=== PATIENT | female | born 1955 | race Caucasian/White ===

== ENCOUNTER 2020-01-08 09:16 | Outpatient (REF) | payer OTHER, SELFPAY | END 2020-01-08 09:17 | disposition home or self-care (01) | LOC: HO.LAB 09:16 | PROVIDERS: Visit Provider Internal Medicine | DX: Z20.828 Contact with and (suspected) exposure to other viral communicable diseases (principal) | CPT/HCPCS: C9803; U0003 ==

== ENCOUNTER 2021-09-05 06:09 | Outpatient (REF) | payer OTHER, SELFPAY ==
[2021-09-05 11:25] LABS: MANUAL DIFF FLAG NO
[2021-09-05 11:35] LABS: Basophils Percent Auto 0.6 % (0-2); Eosinophils Absolute Auto 0.1 X10*3/uL (0.0-0.4); Eosinophils Percent Auto 1.5 % (0-4); Hematocrit 39.6 % (37.0-47.0); Hemoglobin 12.6 g/dl (12.0-16.0); Imm Gran Abs Auto 0.01 X10*3/uL (0.00-0.03); Imm Gran Pct Auto 0.1 % (0.0-0.4); Lymphocytes Absolute Auto 2.7 X10*3/uL (1.2-4.9); Mean Corpuscular HGB Conc 31.8 g/dl (31.0-35.0); Mean Corpuscular Hemoglobin 27.8 pg (27.0-33.0); Mean Corpuscular Volume 87.4 fL (80.0-98.0); Mean Platelet Volume 11.2 fL (9.4-12.3); Monocytes Absolute Auto 0.6 X10*3/uL (0.1-1.2); Monocytes Percent Auto 9.4 % (2-11); Neutrophils Absolute Auto 3.3 x10*3/uL (2.0-8.3); Neutrophils Percent Auto 48.4 % (45-73); Platelet Count 260 X10*3/uL (160-400); Red Blood Count 4.53 X10*6/uL (4.20-5.50); Red Cell Distribution Width 14.1 % (11.0-16.0); White Blood Count 6.8 X10*3/uL (4.8-10.8)
[2021-09-05 11:58] LABS: Alanine Aminotransferase 21 U/L (0-31); Albumin Level 4.4 g/dL (3.5-5.0); Alkaline Phosphatase 67 U/L (39-117); Anion Gap 11 (12-20); Aspartate Amino Transferase 24 U/L (5-31); Bilirubin Total 0.3 mg/dL (0.0-1.0); Blood Urea Nitrogen 30 mg/dL (9-16); Calcium 9.2 mg/dL (8.4-10.2); Carbon Dioxide 24 mmol/L (22-29); Chloride 109 mmol/L (96-108); Cholesterol 202 mg/dL; Estimated Glomerular Filt Rate > 60; Glucose Fasting 107 mg/dL (60-99); HDL Cholesterol 61 mg/dL; LDL Cholesterol Calculated 112 mg/dl; Potassium 4.3 mmol/L (3.3-5.1); Sodium 140 mmol/L (135-145); Triglycerides 148 mg/dL
== END 2021-09-05 06:10 | disposition home or self-care (01) ==
LOC: HO.HMGCLDS 06:09
PROVIDERS: Visit Provider Internal Medicine
DX: I10 Essential (primary) hypertension (principal); R05.8 Other specified cough; R63.5 Abnormal weight gain
CPT/HCPCS: 36415; 80053; 80061; 84443; 85025

== ENCOUNTER 2022-08-30 07:50 | Outpatient (REF) | payer MEDICARE, OTHER, SELFPAY | END 2022-08-30 07:51 | disposition home or self-care (01) | LOC: HO.HMGCLDS 07:50 | PROVIDERS: PCP Internal Medicine; Visit Provider Internal Medicine | DX: Z00.01 Encounter for general adult medical examination with abnormal findings (principal); R73.01 Impaired fasting glucose; I10 Essential (primary) hypertension | CPT/HCPCS: 36415; 80053; 80061; 83036; 85025 ==

== ENCOUNTER → 2022-10-10 08:23 | Outpatient (BNVA) | payer MEDICARE, OTHER, SELFPAY | PROVIDERS: PCP Internal Medicine; Visit Provider Nurse Practitioner Family ==

== ENCOUNTER 2022-10-23 07:24 | Outpatient (REF) | payer MEDICARE, OTHER, SELFPAY ==
--- NOTE | ~2022-10-23 | MM_ITS ---
EXAMINATION: MM SCREENING DIGITAL BREAST TOMOSYNTHESIS, BILATERAL CLINICAL INFORMATION: Screening. Asymptomatic. COMPARISON: Mammography: 08/12/2018, 06/07/2016, 03/16/2015, 03/20/2013, and dating back to 2010. TECHNIQUE: Digital breast tomosynthesis is performed in both the craniocaudal and mediolateral oblique views along with computer-aided detection (CAD). Synthesized 2D images are generated from the tomosynthesis. FINDINGS: There are scattered areas of fibroglandular density (ACR BI-RADS breast composition Category b). There are benign secretory calcifications in both breasts. There are no suspicious calcifications. There is bilateral retroareolar duct ectasia. In the left breast upper outer quadrant, middle one third, there is a focal asymmetry which appears more prominent than previously, and 3-D spot compression views utilizing small paddle recommended in the CC, and MLO projections, as well as a full-field left 3-D mediolateral view. MM/MM tomosynthesis screening BI IMPRESSION: Left breast upper outer quadrant, middle one third, developing focal asymmetry for which diagnostic views are recommended as discussed above. Ultrasound should be scheduled as per discretion of the interpreting radiologist. ASSESSMENT: BI-RADS BI-RADS 0 - Incomplete: Needs additional Imaging. RECOMMENDATION: 1. Additional views of the left breast 2. Targeted ultrasound if warranted after review of the additional views. 3. Radiology department staff will contact the patient for additional imaging. Additional Imaging required This examination should not preclude the clinical evaluation of a suspicious palpable abnormality.
== END 2022-10-23 07:25 | disposition home or self-care (01) ==
LOC: HO.MAMMO 07:24
PROVIDERS: PCP Internal Medicine; Visit Provider Internal Medicine
DX: Z12.31 Encounter for screening mammogram for malignant neoplasm of breast (principal)
CPT/HCPCS: 77063; 77067

== ENCOUNTER → 2022-10-23 07:30 | Outpatient (BNV) | payer MEDICARE, OTHER, SELFPAY | PROVIDERS: PCP Internal Medicine; Visit Provider Radiology Diagnostic Radiology | DX: Z12.31 Encounter for screening mammogram for malignant neoplasm of breast (principal) | CPT/HCPCS: 77063; 77067 ==

== ENCOUNTER → 2022-11-09 08:00 | Outpatient (BNV) | payer MEDICARE, OTHER, SELFPAY | PROVIDERS: Visit Provider Radiology Diagnostic Radiology | DX: R92.8 Other abnormal and inconclusive findings on diagnostic imaging of breast (principal) | CPT/HCPCS: 76642; 77061; 77065; G0279 ==

== ENCOUNTER 2022-11-09 08:04 | Outpatient (REF) | payer MEDICARE, OTHER, SELFPAY ==
--- NOTE | ~2022-11-09 | MM_ITS ---
EXAMINATION: MM DIAGNOSTIC DIGITAL BREAST TOMOSYNTHESIS, LEFT US BREAST LIMITED, LEFT MAMMOGRAPHY: CLINICAL INFORMATION: Follow-up focal asymmetric density left breast upper outer quadrant, seen on screening exam. COMPARISON: Mammography: Screening mammography 10/23/2022 and numerous priors. TECHNIQUE: Digital left breast tomosynthesis is performed utilizing full-field left 3-D digital mediolateral view, as well as a left 3-D spot compression MLO and cc views x2, along with computer-aided detection (CAD). Synthesized 2D images are generated from the tomosynthesis. FINDINGS: There are scattered areas of fibroglandular density (ACR BI-RADS breast composition Category b). Spot compression views and left ML view demonstrate dissipation of the previously seen focal asymmetric density, which does not persist, and is consistent with superimposition artifact of normal overlapping breast tissues. There is no persistent suspicious finding present. Ultrasound will be performed in the interest of caution. ULTRASOUND: CLINICAL INFORMATION: Follow-up focal asymmetric density left breast upper outer quadrant, seen on screening exam. COMPARISON: No relevant prior. Mammography 10/23/2022 TECHNIQUE: Targeted sonographic evaluation was performed left breast upper outer quadrant using a high frequency linear transducer. Selected archived documentation. FINDINGS: LEFT BREAST: There is a mixture of fatty and fibroglandular tissue. No suspicious mass is seen. There is no pathologic acoustic shadowing. There is no cystic abnormality. No ultrasonographic correlate to the asymmetric density seen on the left mammogram, which dissipated on spot compression views. MM/MM tomosynthesis added views L IMPRESSION: There are no persistent findings suspicious for malignancy in the left breast. No ultrasonographic or mammographic evidence of persistent abnormality in the left breast. Recommend the patient resume routine annual screening. OVERALL ASSESSMENT: Mammography: BI-RADS 1 - Negative Ultrasound: BI-RADS 1 - Negative RECOMMENDATION: 1 year F/U Results were provided to the patient at time of visit by the technologist. This patient's information was entered into a reminder system with a target due date for their next mammogram.
== END 2022-11-09 08:05 | disposition home or self-care (01) ==
LOC: HO.MAMMO 08:04
PROVIDERS: Visit Provider Internal Medicine
DX: N64.89 Other specified disorders of breast (principal)
CPT/HCPCS: 76642; 77061; 77065

== ENCOUNTER 2022-11-14 09:09 | Outpatient (AMB) | payer MEDICARE, OTHER, SELFPAY ==
--- NOTE | 2022-11-14 09:13 | MHC.PC.OV ---
Vital Signs 11/14/22 09:14 Height 5 ft 5.5 in Weight 178 lb BMI 29.2 BP 132/68 Blood Pressure Location Rt brachial Position Sitting Pulse 64 Pulse Source Pulse Oximeter Pulse Oximetry (%) 97 Oxygen Delivery Method Room Air Intake Visit Reasons: 3 month follow up Allergies hydrochlorothiazide [HYDROCHLOROTHIAZIDE] Allergy (Unknown, Verified 11/14/22 09:14) SWELLING, rash sulfacetamide Allergy (Unknown, Verified 11/14/22 09:14) unknown bee sting Allergy (Unknown, Uncoded 10/10/22 09:02) anaphylaxis Medication List - Last Reconciled 11/14/22 by Rigoberto Agudelo MD acetaminophen ER 650 mg PO Q8H PRN bisacodyl (Dulcolax (bisacodyl)) 10 mg (2 x 5 mg) PO ONCE 1 day cetirizine (Zyrtec) 10 mg PO DAILY epinephrine 0.3 mg (0.3 mL) IM Q10M PRN 30 days lisinopril 5 mg PO DAILY 90 days magnesium 400 mg PO BEDTIME PRN polyethylene glycol 3350 (Miralax) 238 grams PO ONCE Tobacco use date assessed: 11/14/22 Fall risk assessment: No Falls in past year Last assessed Fall Risk: 11/14/22 Dental Screening Dental Screen Date: 11/14/22 Did you have a dental visit in the last 12 months?: Yes Did you have a dental problem in the last 6 months where you did not have access to dental care?: No Was dental information given to patient?: Patient has dentist HPI 3 month follow up HPI Details Patient is a 67-year-old female came in today for her regular follow-up appointment Blood pressure is 132/68 patient is taking lisinopril 5 mg, tolerating medication no side effects. Patient is due for labs she had labs done in August she will be having next set of lab in January, and will return in March for follow-up. Constipation is stable patient is taking Dulcolax and MiraLax as needed. Allergies are stable patient is taking Zyrtec only as needed. She offer no new complaints today. BMI is 29.2 patient need to lose weight she is trying. PFSH Medical History COVID-19 virus infection Surgical History History of colonoscopy History of hysteroscopy History of arthroscopy of right knee H/O prior ablation treatment History of facial surgery Family History Father Heart disease Aneurysm ETOH abuse Mother Lung cancer Sister COPD (chronic obstructive pulmonary disease) Son Asthma Maternal Grandmother Cirrhosis Maternal Grandfather Heart disease Paternal Grandfather No problems noted. Paternal Grandmother No problems noted. Brother No problems noted. Brother No problems noted. Sister No problems noted. Sister No problems noted. Sister No problems noted. Son No problems noted. Daughter No problems noted. Social History Housing: House Patient Tobacco Use Status: Never used Tobacco e-Cigarette/Vaping Use: Never Used service: No Current occupational status: retired Cognitive needs: No Hearing needs: No Vision needs: Yes Questionnaire PHQ-9 Over the last 2 weeks, how often have you been bothered by any of the following problems? 1. Little interest or pleasure in doing things: not at all 2. Feeling down, depressed, or hopeless: not at all 3. Trouble falling or staying asleep, or sleeping too much: not at all 4. Feeling tired or having little energy: not at all 5. Poor appetite or overeating: not at all 6. Feeling bad about yourself - or that you are a failure or have let yourself or your family down: not at all 7. Trouble concentrating on things, such as reading the newspaper or watching television: not at all 8. Moving or speaking so slowly that other people could have noticed. Or the opposite - being so fidgety or restless that you have been moving around a lot more than usual: not at all 9. Thoughts that you would be better off or of hurting yourself in some way: not at all Total score: 0 Depression Screening Interpretation: Negative 19395 - PHQ-9 Billing: Yes Source: Developed by Drs. Terrence Dickey, Natalie Mckee, Porfirio Marrufo and colleagues, with an educational lg from [employer]. Thrive Questionnaire Date Thrive assessed: 11/14/22 I am a: Patient What is your living situation today?: I have a steady place to live Within the past 12 months, did the food you bought not last and you didn't have the money to get more?: Never true Within the past 12 months, did you worry whether your food would run out before you got money to buy more?: Never true Do you have trouble paying for medicines?: No Do you have trouble getting transportation to medical appointments?: No Do you have trouble paying your heating and electricity bill?: No Do you have trouble taking care of your child, family member or friend?: No Do you have trouble with day-to-day activities such as bathing, preparing meals, shopping, managing finances, etc.?: No Are you currently unemployed and looking for a job?: No Are you interested in more education?: Yes AUDIT C Alcohol Use Questionnaire (AUDIT-C) 1. How often do you have a drink containing alcohol?: Monthly or less 2. How many drinks containing alcohol do you have on a typical day when you are drinking?: 1 or 2 3. How often do you have six or more drinks on one occasion?: Never Total Score: 1 Score Reviewed/Action Taken: Yes TROY-7 AMB Questionnaire TROY-7 Date TROY - 7 assessed: 11/14/22 Feeling nervous, anxious, or on edge: 1 = Several days Not being able to stop or control worryin = Several days Worrying too much about different things: 1 = Several days Trouble relaxin = Not at all Being so restless that it is hard to sit still: 0 = Not at all Becoming easily annoyed or irritable: 0 = Not at all Feeling afraid as if something awful might happen: 0 = Not at all Total TROY-7 score (0-4 normal; 5-9 mild; 10-14 moderate; 15-21 severe): 3 Source: Developed by Drs. Terrence Dickey, Natalie Mckee, Porfirio Marrufo and colleagues, with an educational lg from [employer]. TROY-7 Assessment Billing TROY-7 Assessment Tool: TROY-7 Assessment 74209 Review of Systems Const Denies chills and Denies fever(s) ENT Denies epistaxis and Denies nasal discharge Card Denies chest pain Resp Denies chest congestion, Denies cough and Denies hemoptysis GI Denies diarrhea and Denies nausea Skin/Breast Denies rash Neuro Reports no additional complaints Psych Reports no additional complaints Endo Reports no additional complaints Physical exam (Primary Care) Vital Signs: Last Vital Signs Pulse 64 11/14/22 09:14 BP 132/68 11/14/22 09:14 Pulse Ox 97 11/14/22 09:14 Oxygen Delivery Method Room Air 11/14/22 09:14 BMI result Body Mass Index 29.2 Tobacco/Smoking Status: Tobacco use Status Tobacco use date assessed 11/14/22 11/14/22 09:14 Patient Tobacco Use Status Never used Tobacco 11/14/22 09:14 e-Cigarette/Vaping Use Never Used 11/14/22 09:14 PHQ-9: PHQ-9 Score PHQ-9: Total score 0 11/14/22 10:05 Depression Screening Interpretation: Negative Thrive Assessment: Date of Thrive Assessment Date Thrive assessed 11/14/22 11/14/22 10:05 Const General: cooperative, comfortable and no acute distress Orientation/consciousness: patient oriented x3 HENMT Head: Yes normocephalic Eyes General: appearance normal, both eyes and all related structures Neck Neck: Yes supple Resp Effort & Inspection: normal respiratory effort, no cough and no stridor Cardio Rhythm: regular rhythm Heart sounds: S1 normal heart sound present and S2 normal heart sound present Skin General skin exam: turgor normal Neuro General: patient oriented x3, tone normal and moves all extremities Extrem Right lower extremity: no edema Left lower extremity: no edema Assessment and Plan Assessment & Plan (1) Hypertension, essential: Code(s): I10 - Essential (primary) hypertension (2) Environmental allergies: Code(s): Z91.09 - Other allergy status, other than to drugs and biological substances (3) Impaired fasting blood sugar: Code(s): R73.01 - Impaired fasting glucose (4) Overweight (BMI 25.0-29.9): Code(s): E66.3 - Overweight Plan Patient is a 67-year-old female came in today for her regular follow-up appointment Blood pressure is 132/68 patient is taking lisinopril 5 mg, tolerating medication no side effects. Patient is due for labs she had labs done in August she will be having next set of lab in January, and will return in March for follow-up. Constipation is stable patient is taking Dulcolax and MiraLax as needed. Allergies are stable patient is taking Zyrtec only as needed. She offer no new complaints today. BMI is 29.2 patient need to lose weight she is trying. Patient has impaired fasting sugar, we are monitoring it. Orders: Orders Vitamin D 25-OH (D2 and D3) Today I10 - Essential (primary) hypertension, R63.5 - Abnormal weight gain, R73.01 - Impaired fasting glucose, Z91.09 - Other allergy status, other than to drugs and biological substances Vitamin B12 Today I10 - Essential (primary) hypertension, R63.5 - Abnormal weight gain, R73.01 - Impaired fasting glucose, Z91.09 - Other allergy status, other than to drugs and biological substances TSH reflex Free T4 Today I10 - Essential (primary) hypertension, R63.5 - Abnormal weight gain, R73.01 - Impaired fasting glucose, Z91.09 - Other allergy status, other than to drugs and biological substances Complete Blood Count Auto Diff Today I10 - Essential (primary) hypertension, R63.5 - Abnormal weight gain, R73.01 - Impaired fasting glucose, Z91.09 - Other allergy status, other than to drugs and biological substances Comprehensive [place]. Panel Fast Today I10 - Essential (primary) hypertension, R63.5 - Abnormal weight gain, R73.01 - Impaired fasting glucose, Z91.09 - Other allergy status, other than to drugs and biological substances Lipid Panel Today I10 - Essential (primary) hypertension, R63.5 - Abnormal weight gain, R73.01 - Impaired fasting glucose, Z91.09 - Other allergy status, other than to drugs and biological substances Coding Level of Care Code Est Pt Level 4 (69460) Diagnoses Hypertension, essential I10 Environmental allergies Z91.09 Impaired fasting blood sugar R73.01 Overweight (BMI 25.0-29.9) E66.3 Additional Codes TROY-7 Assessment Billing - TROY-7 Assessment Tool: TROY-7 Assessment 88444 ([id number])
[2022-11-14 09:14] VITALS: BP 132/68; PULSE 64; O2SAT 97; BMI 29.2
== END 2022-11-14 09:45 | disposition home or self-care (01) ==
PROVIDERS: PCP Internal Medicine; Visit Provider Internal Medicine
DX: I10 Essential (primary) hypertension (principal); Z91.09 Other allergy status, other than to drugs and biological substances; R73.01 Impaired fasting glucose; E66.3 Overweight
CPT/HCPCS: 99214

== ENCOUNTER 2023-03-22 07:12 | Outpatient (REF) | payer MEDICARE, OTHER, SELFPAY ==
[2023-03-22 11:42] LABS: MANUAL DIFF FLAG NO
[2023-03-22 12:01] LABS: Basophils Percent Auto 0.3 % (0-2); Eosinophils Absolute Auto 0.1 X10*3/uL (0.0-0.4); Eosinophils Percent Auto 0.9 % (0-4); Hematocrit 44.1 % (37.0-47.0); Hemoglobin 13.8 g/dl (12.0-16.0); Imm Gran Abs Auto 0.01 X10*3/uL (0.00-0.03); Imm Gran Pct Auto 0.2 % (0.0-0.4); Lymphocytes Absolute Auto 2.2 X10*3/uL (1.2-4.9); Lymphocytes Percent Auto 37.8 % (20-40); Mean Corpuscular HGB Conc 31.3 g/dl (31.0-35.0); Mean Corpuscular Hemoglobin 27.2 pg (27.0-33.0); Mean Corpuscular Volume 86.8 fL (80.0-98.0); Mean Platelet Volume 10.9 fL (9.4-12.3); Monocytes Absolute Auto 0.4 X10*3/uL (0.1-1.2); Neutrophils Absolute Auto 3.1 x10*3/uL (2.0-8.3); Neutrophils Percent Auto 53.8 % (45-73); Platelet Count 293 X10*3/uL (160-400); Red Blood Count 5.08 X10*6/uL (4.20-5.50); Red Cell Distribution Width 13.2 % (11.0-16.0); White Blood Count 5.8 X10*3/uL (4.8-10.8)
[2023-03-22 12:32] LABS: Vitamin B12 332 pg/mL (200-900)
[2023-03-22 12:37] LABS: Alanine Aminotransferase 21 U/L (0-31); Albumin Level 4.4 g/dL (3.5-5.0); Alkaline Phosphatase 67 U/L (39-117); Anion Gap 13 (12-20); Aspartate Amino Transferase 24 U/L (5-31); Bilirubin Total 0.4 mg/dL (0.0-1.0); Blood Urea Nitrogen 16 mg/dL (9-16); Calcium 9.7 mg/dL (8.4-10.2); Carbon Dioxide 25 mmol/L (22-29); Chloride 105 mmol/L (96-108); Cholesterol 236 mg/dL (<200); Estimated Glomerular Filt Rate > 60; Glucose Fasting 95 mg/dL (60-99); HDL Cholesterol 72 mg/dL (>40); LDL Cholesterol Calculated 145 mg/dL (<100); Potassium 4.3 mmol/L (3.3-5.1); Sodium 139 mmol/L (135-145); Total Protein 7.3 g/dL (6.5-8.0); Triglycerides 95 mg/dL (<150)
[2023-03-22 12:41] LABS: TSH reflex Free T4 2.28 uIU/mL (0.32-4.0)
[2023-03-26 14:30] LABS: Vitamin D 25-OH, D2 <4 ng/mL; Vitamin D 25-OH, D3 33 ng/mL; Vitamin D 25-OH, Total 33 ng/mL (30-100)
== END 2023-03-22 07:13 | disposition home or self-care (01) ==
LOC: HO.HMGCLDS 07:12
PROVIDERS: PCP Internal Medicine; Visit Provider Internal Medicine
DX: I10 Essential (primary) hypertension (principal); R73.01 Impaired fasting glucose; R63.5 Abnormal weight gain; Z91.09 Other allergy status, other than to drugs and biological substances
CPT/HCPCS: 36415; 80053; 80061; 82306; 82607; 84443; 85025

== ENCOUNTER 2023-04-03 11:50 | Outpatient (AMB) | payer MEDICARE, OTHER, SELFPAY ==
--- NOTE | 2023-04-03 11:56 | A.OFFVIS_ITS ---
Intake Vital Signs 04/03/23 11:57 Height 5 ft 5.5 in Weight 178 lb BMI 29.2 BP 157/70 H Blood Pressure Location Lt brachial Position Sitting Pulse 65 Intake Visit Reasons: s/p egd/colon Intake Note: Patient follow up for lab results. Patient cc: abdominal bloating, and acid reflex. Patient procedures are on 04/19. Molding Technician Required: No Accompanied by: Self / Same As Patient Allergies hydrochlorothiazide [HYDROCHLOROTHIAZIDE] Allergy (Unknown, Verified 04/03/23 11:55) SWELLING, rash sulfacetamide Allergy (Unknown, Verified 04/03/23 11:55) unknown bee sting Allergy (Unknown, Uncoded 10/10/22 09:02) anaphylaxis HPI s/p egd/colon HPI Details LAST VISIT: Colon cancer screening Patient denies any GI, cardiac or respiratory symptoms.? Denies any issues with anesthesia in the past.? Denies any history of sleep apnea.? No history infectious diseases in the past or present.? Not on any anticoagulation therapy.? No family or personal history of colon cancer or polyps.? Patient denies melena, hematochezia, unintentional weight loss or ribbon like stools.? Discussed at length the pre-procedure,? prep, diet & medications as well as what to expect prior, during and after the procedure.?? Stressed the importance of good bowel prep. ?Recommended the use of Vaseline or Calmoseptine OTC & baby wipes with bowel movements to promote comfort.? ?Patient verbalizes understanding and agrees to plan of care.? She was given the opportunity to ask questions and all questions answered.? We will see her after the procedure.? TODAY'S VISIT Patient is here today for follow-up and to go over prep. Patient does have appointment scheduled for procedure. Reports that she is moving her bowels better now. Patient reports that she is trying to change her diet, eating healthier. Patient denies any dyspepsia, dysphagia or odynophagia. Patient denies any melena, hematochezia, unintentional weight loss or ribbon like stools. Patient denies any cardiac or respiratory symptoms. [facility] Medical History COVID-19 virus infection Surgical History History of colonoscopy History of hysteroscopy History of arthroscopy of right knee H/O prior ablation treatment History of facial surgery Family History Father Heart disease Aneurysm ETOH abuse Mother Lung cancer Sister COPD (chronic obstructive pulmonary disease) Son Asthma Maternal Grandmother Cirrhosis Maternal Grandfather Heart disease Paternal Grandfather No problems noted. Paternal Grandmother No problems noted. Brother No problems noted. Brother No problems noted. Sister No problems noted. Sister No problems noted. Sister No problems noted. Son No problems noted. Daughter No problems noted. Social History Housing: House Patient Tobacco Use Status: Never used Tobacco e-Cigarette/Vaping Use: Never Used service: No Current occupational status: retired Cognitive needs: No Hearing needs: No Vision needs: Yes Review of Systems Const Denies weight gain and Denies weight loss ENT Reports no additional complaints, Denies dysphagia and Denies odynophagia Card Reports no additional complaints Resp Reports no additional complaints GI Denies abdominal pain, Denies belching, Denies melena, Denies bloating, Denies change in bowel habits, Denies dysphagia, Denies excessive flatus, Denies dyspepsia, Denies heartburn, Denies diarrhea, Denies loose stools, Denies nausea, Denies odynophagia and Denies vomiting Musc Reports no additional complaints Neuro Reports no additional complaints Psych Reports no additional complaints Endo Reports no additional complaints Physical Exam Vital Signs: Last Vital Signs Pulse 65 04/03/23 11:57 BP 157/70 H 04/03/23 11:57 BMI result Body Mass Index 29.2 Const General: healthy appearing, no acute distress and well developed Nutritional Appearance: well nourished Orientation/consciousness: patient oriented x3 Resp Effort & Inspection: normal respiratory effort, able to speak in complete sentences, no tracheal deviation and symmetric chest movement Auscultation: clear to auscultation bilaterally Cardio Rate: regular rate GI Inspection: Yes normal to inspection and No distended Palpation (GI): Soft to palpation, not firm, nontender and No hepatosplenomegaly present Auscultation: normal bowel sounds General: Yes no CVA tenderness Back/Spine/Pelvis Back: no CVA tenderness Skin General skin exam: elasticity normal, turgor normal and dry skin Neuro General: patient oriented x3 Psych Appearance: grossly normal Mental Status: mental status grossly normal Assessment & Plan Assessment & Plan (1) Colon cancer screening: Code(s): Z12.11 - Encounter for screening for malignant neoplasm of colon (2) Constipation: Code(s): K59.00 - Constipation, unspecified Qualifiers: Constipation type: slow transit constipation Qualified Code(s): K59.01 - Slow transit constipation Plan Continue current regimen. Increase fluid intake and activity to promote better bowel motility. What to expect before during and after the procedure discussed with patient. Clear liquid diet and good bowel prep stressed with patient. Patient denies any cardiac or respiratory symptoms. I will see patient after the procedure, sooner on as needed basis. Patient is agreeable to current plan and verbalizes understanding of instructions. She was given the opportunity to ask questions and all questions answered. Thank you for allowing me to participate in her care Coding Level of Care Code Est Pt Level 3 (31795) Diagnoses Colon cancer screening Z12.11 Slow transit constipation K59.01 Constipation type: slow transit constipation Time Spent (min) 25 Comment 15 minutes spent with patient and additional 10 minutes spent reviewing her records
[2023-04-03 11:57] VITALS: BP 157/70; PULSE 65; BMI 29.2
== END 2023-04-03 12:35 | disposition home or self-care (01) ==
PROVIDERS: Visit Provider Nurse Practitioner Family
DX: K59.01 Slow transit constipation (principal); Z12.11 Encounter for screening for malignant neoplasm of colon
CPT/HCPCS: 99213

== ENCOUNTER → 2023-04-03 11:50 | Outpatient (BNVA) | payer MEDICARE, OTHER, SELFPAY | PROVIDERS: Visit Provider Nurse Practitioner Family | DX: Z12.11 Encounter for screening for malignant neoplasm of colon (principal); K59.01 Slow transit constipation | CPT/HCPCS: 99212 ==

== ENCOUNTER 2023-04-05 08:16 | Outpatient (AMB) | payer MEDICARE, OTHER, SELFPAY ==
--- NOTE | 2023-04-05 08:42 | MHC.PC.OV ---
Vital Signs 04/05/23 08:42 Height 5 ft 5.5 in Intake Visit Reasons: 5 month follow up Allergies hydrochlorothiazide [HYDROCHLOROTHIAZIDE] Allergy (Unknown, Verified 04/05/23 08:43) SWELLING, rash sulfacetamide Allergy (Unknown, Verified 04/05/23 08:43) unknown bee sting Allergy (Unknown, Uncoded 10/10/22 09:02) anaphylaxis Tobacco use date assessed: 04/05/23 [facility] Medical History COVID-19 virus infection Surgical History History of colonoscopy History of hysteroscopy History of arthroscopy of right knee H/O prior ablation treatment History of facial surgery Family History Father Heart disease Aneurysm ETOH abuse Mother Lung cancer Sister COPD (chronic obstructive pulmonary disease) Son Asthma Maternal Grandmother Cirrhosis Maternal Grandfather Heart disease Paternal Grandfather No problems noted. Paternal Grandmother No problems noted. Brother No problems noted. Brother No problems noted. Sister No problems noted. Sister No problems noted. Sister No problems noted. Son No problems noted. Daughter No problems noted. Social History Housing: House Patient Tobacco Use Status: Never used Tobacco e-Cigarette/Vaping Use: Never Used service: No Current occupational status: retired Cognitive needs: No Hearing needs: No Vision needs: Yes Questionnaire Thrive Questionnaire Date Thrive assessed: 11/14/22 TROY-7 AMB Questionnaire TROY-7 Date TROY - 7 assessed: 11/14/22 Source: Developed by Drs. Terrence Dickey, aNtalie Mckee, Porfirio Marrufo and colleagues, with an educational lg from [employer]. Physical exam (Primary Care) Tobacco/Smoking Status: Tobacco use Status Tobacco use date assessed 11/14/22 11/14/22 09:14 Patient Tobacco Use Status Never used Tobacco 11/14/22 09:14 e-Cigarette/Vaping Use Never Used 11/14/22 09:14 Thrive Assessment: Date of Thrive Assessment Date Thrive assessed 11/14/22 11/14/22 10:05 Coding
--- NOTE | 2023-04-05 11:38 | MHC.PC.OV ---
Vital Signs 04/05/23 08:42 Height 5 ft 5.5 in Intake Visit Reasons: 5 month f/u~[phone] Allergies hydrochlorothiazide [HYDROCHLOROTHIAZIDE] Allergy (Unknown, Verified 04/05/23 11:38) SWELLING, rash sulfacetamide Allergy (Unknown, Verified 04/05/23 11:38) unknown bee sting Allergy (Unknown, Uncoded 10/10/22 09:02) anaphylaxis Medication List - Last Reconciled 04/05/23 by Rigoberto Agudelo MD acetaminophen ER 650 mg PO Q8H PRN bisacodyl (Dulcolax (bisacodyl)) 10 mg (2 x 5 mg) PO ONCE 1 day cetirizine (Zyrtec) 10 mg PO DAILY epinephrine 0.3 mg (0.3 mL) IM Q10M PRN 30 days lisinopril 5 mg PO DAILY 90 days magnesium 400 mg PO BEDTIME PRN polyethylene glycol 3350 (Miralax) 238 grams PO ONCE Tobacco use date assessed: 04/05/23 Last assessed Fall Risk: 04/05/23 Dental Screening Dental Screen Date: 04/05/23 HPI 5 month f/u~[phone] HPI Details Patient is 67-year-old female this is a telemedicine video conference Patient says that for the past year she has been feeling sad because she lost some family member and she started drinking alcohol She was not taking care of herself was eating lot of butter and salty food Her blood pressure started to stay high, she recently had a visit with the gastroenterology and her systolic blood pressure was 157 Patient says that she had made some changes to her lifestyle since, she has started walking and exercising and she is eating healthy now She also had labs done which we reviewed, I see that her HDL is also very high, LDL is 145, patient was reassured She is doing the right things now she will be referred raining from drinking alcohol, does admit that she feels anxious at times but she does not want to take any medication. She will continue to monitor her blood pressure, as long as it is staying below 140 patient will continue with lisinopril 5 mg Patient will repeat labs again before she sees me in August. Order placed [facility] Medical History COVID-19 virus infection Surgical History History of colonoscopy History of hysteroscopy History of arthroscopy of right knee H/O prior ablation treatment History of facial surgery Family History Father Heart disease Aneurysm ETOH abuse Mother Lung cancer Sister COPD (chronic obstructive pulmonary disease) Son Asthma Maternal Grandmother Cirrhosis Maternal Grandfather Heart disease Paternal Grandfather No problems noted. Paternal Grandmother No problems noted. Brother No problems noted. Brother No problems noted. Sister No problems noted. Sister No problems noted. Sister No problems noted. Son No problems noted. Daughter No problems noted. Social History Housing: House Patient Tobacco Use Status: Never used Tobacco e-Cigarette/Vaping Use: Never Used service: No Current occupational status: retired Cognitive needs: No Hearing needs: No Vision needs: Yes Questionnaire Thrive Questionnaire Date Thrive assessed: 11/14/22 AUDIT C Alcohol Use Questionnaire (AUDIT-C) 1. How often do you have a drink containing alcohol?: Never 3. How often do you have six or more drinks on one occasion?: Never Total Score: 0 Score Reviewed/Action Taken: Yes TROY-7 AMB Questionnaire TROY-7 Date TROY - 7 assessed: 11/14/22 Source: Developed by Drs. Terrence Dickey, Natalie Mckee, Porfirio Marrufo and colleagues, with an educational lg from [employer]. Review of Systems Const Denies chills and Denies fever(s) ENT Denies epistaxis and Denies nasal discharge Card Denies chest pain Resp Denies chest congestion, Denies cough and Denies hemoptysis GI Denies diarrhea and Denies nausea Skin/Breast Denies rash Neuro Reports no additional complaints Psych Reports no additional complaints Endo Reports no additional complaints Physical exam (Primary Care) Tobacco/Smoking Status: Tobacco use Status Tobacco use date assessed 04/05/23 04/05/23 11:40 Patient Tobacco Use Status Never used Tobacco 04/05/23 11:40 e-Cigarette/Vaping Use Never Used 04/05/23 11:40 Thrive Assessment: Date of Thrive Assessment Date Thrive assessed 11/14/22 04/05/23 11:40 Telehealth Telehealth Location of provider rendering services: practice address Location of patient: address on file Patient Identification confirmed using: Name, : Yes Telehealth method: video Patient verbally consented to treatment: Yes Patient verbally consented to billing insurance company: Yes Patient informed of any privacy concerns related to visit: Yes Minutes spent on Phone/Video with Pt.: 14 Assessment and Plan Assessment & Plan (1) Hypertension, essential: Code(s): I10 - Essential (primary) hypertension (2) Impaired fasting blood sugar: Code(s): R73.01 - Impaired fasting glucose Plan Patient is 67-year-old female this is a telemedicine video conference Patient says that for the past year she has been feeling sad because she lost some family member and she started drinking alcohol She was not taking care of herself was eating lot of butter and salty food Her blood pressure started to stay high, she recently had a visit with the gastroenterology and her systolic blood pressure was 157 Patient says that she had made some changes to her lifestyle since, she has started walking and exercising and she is eating healthy now She also had labs done which we reviewed, I see that her HDL is also very high, LDL is 145, patient was reassured She is doing the right things now she will be referred raining from drinking alcohol, does admit that she feels anxious at times but she does not want to take any medication. She has impaired fasting sugar however her sugar came back normal this time She will continue to monitor her blood pressure, as long as it is staying below 140 patient will continue with lisinopril 5 mg Patient will repeat labs again before she sees me in August. Order placed Orders: Orders Lipid Panel 5 Months I10 - Essential (primary) hypertension, R73.01 - Impaired fasting glucose Complete Blood Count Auto Diff 5 Months I10 - Essential (primary) hypertension, R73.01 - Impaired fasting glucose Comprehensive [place]. Panel Fast 5 Months I10 - Essential (primary) hypertension, R73.01 - Impaired fasting glucose Vitamin B12 5 Months I10 - Essential (primary) hypertension, R73.01 - Impaired fasting glucose Coding Level of Care Code Tele Est Pt Level 3 (60816) Diagnoses Hypertension, essential I10 Impaired fasting blood sugar R73.01
== END 2023-04-05 12:26 | disposition home or self-care (01) ==
PROVIDERS: PCP Internal Medicine; Visit Provider Internal Medicine
DX: I10 Essential (primary) hypertension (principal); R73.01 Impaired fasting glucose
CPT/HCPCS: 99213

== ENCOUNTER 2023-04-19 08:18 | Day surgery (SDC) | payer MEDICARE, OTHER, SELFPAY ==
[2023-04-17 14:17] VITALS: BMI 29.2
--- NOTE | 2023-04-18 09:21 | P.CONAN_ITS ---
Documented by User: Fallon Hoover NP 04/18/23 09:22 HPI - Anesthesia Eval Consult details Narrative: 68yo F for Colonoscopy PMFSH Active Problems Active Problems: All Active Problems (Updated 11/14/22 @ 09:51 by Rigoberto Agudelo MD) Overweight (BMI 25.0-29.9) (Acute) Colon cancer screening (Acute) Impaired fasting blood sugar (Acute) Encounter for general adult medical examination with abnormal findings (Acute) Environmental allergies (Acute) Weight gain (Acute) Respiratory tract congestion with cough (Acute) Hair loss (Acute) Hypertension, essential (Acute) Past Medical History Medical History COVID-19 virus infection Family History Family History Father Heart disease Aneurysm ETOH abuse Mother Lung cancer Sister COPD (chronic obstructive pulmonary disease) Son Asthma Maternal Grandmother Cirrhosis Maternal Grandfather Heart disease Paternal Grandfather No problems noted. Paternal Grandmother No problems noted. Brother No problems noted. Brother No problems noted. Sister No problems noted. Sister No problems noted. Sister No problems noted. Son No problems noted. Daughter No problems noted. Surgical History Surgical History History of colonoscopy History of hysteroscopy History of arthroscopy of right knee H/O prior ablation treatment History of facial surgery Social History Social History Housing: House Patient Tobacco Use Status: Never used Tobacco e-Cigarette/Vaping Use: Never Used Use of substances other than those prescribed or required for medical reasons: No Are you DNR?: No Advance Directives: No Advance Directives Information Provided: Yes service: No Current occupational status: retired Cognitive needs: No Hearing needs: No Vision needs: Yes Meds Allergies Allergy/AdvReac Type Severity Reaction Status Date / Time hydrochlorothiazide Allergy Unknown SWELLING, Verified 04/05/23 11:38 [HYDROCHLOROTHIAZIDE] rash sulfacetamide Allergy Unknown unknown Verified 04/05/23 11:38 bee sting Allergy Unknown anaphylaxis Uncoded 10/10/22 09:02 Home Medications Medication Instructions Recorded Confirmed Last Taken Type acetaminophen 650 mg 650 mg PO Q8H PRN Pain 04/01/20 04/19/23 Unknown History tablet,extended release cetirizine 10 mg tablet (Zyrtec) 10 mg PO DAILY 04/01/20 04/19/23 Unknown History magnesium 200 mg tablet 400 mg PO BEDTIME PRN leg crqmps 04/01/20 04/19/23 Unknown History omeprazole 10 mg capsule,delayed 10 mg PO DAILY 04/19/23 04/19/23 04/19/23 History release Exam Height,Weight and Vital Signs: Height 5 ft 5.5 in Weight 80.739 kg Assessment and Plan Assessment Anesthesia Assessment: Chart Reviewed Documented by User: Gerald Farrar MD 04/19/23 08:57 [facility] Past Medical History Medical History COVID-19 virus infection Family History Family History Father Heart disease Aneurysm ETOH abuse Mother Lung cancer Sister COPD (chronic obstructive pulmonary disease) Son Asthma Maternal Grandmother Cirrhosis Maternal Grandfather Heart disease Paternal Grandfather No problems noted. Paternal Grandmother No problems noted. Brother No problems noted. Brother No problems noted. Sister No problems noted. Sister No problems noted. Sister No problems noted. Son No problems noted. Daughter No problems noted. Family history of problems with anesthesia: No Surgical History Surgical History History of colonoscopy History of hysteroscopy History of arthroscopy of right knee H/O prior ablation treatment History of facial surgery History of Problems with Anesthesia: No Social History Social History Housing: House Patient Tobacco Use Status: Never used Tobacco e-Cigarette/Vaping Use: Never Used Use of substances other than those prescribed or required for medical reasons: No Are you DNR?: No Advance Directives: No Advance Directives Information Provided: Yes service: No Current occupational status: retired Cognitive needs: No Hearing needs: No Vision needs: Yes Meds Allergies Allergy/AdvReac Type Severity Reaction Status Date / Time hydrochlorothiazide Allergy Unknown SWELLING, Verified 04/05/23 11:38 [HYDROCHLOROTHIAZIDE] rash sulfacetamide Allergy Unknown unknown Verified 04/05/23 11:38 bee sting Allergy Unknown anaphylaxis Uncoded 10/10/22 09:02 Home Medications Medication Instructions Recorded Confirmed Last Taken Type acetaminophen 650 mg 650 mg PO Q8H PRN Pain 04/01/20 04/19/23 Unknown History tablet,extended release cetirizine 10 mg tablet (Zyrtec) 10 mg PO DAILY 04/01/20 04/19/23 Unknown History magnesium 200 mg tablet 400 mg PO BEDTIME PRN leg crqmps 04/01/20 04/19/23 Unknown History omeprazole 10 mg capsule,delayed 10 mg PO DAILY 04/19/23 04/19/23 04/19/23 History release Exam Airway Mallampati Class: II TM Dist: >3cm Neck ROM: Full Assessment and Plan Assessment Anesthesia Assessment: Anesthesia Plan Discussed Final Anesthetic Review Family History of Problems with Anesthesia: No History of Problems with Anesthesia: No NPO: Yes ASA Class: II Final Preanesthetic Review: No Changes in Pt Med Stat, Meds/Allgs Chart Reviewed, Consent Obtained/Reviewed and Anes Risks/Benef Reviewed Patient Risk: Low Procedure Risk: Low Anesthetic Plan Anesthetic Plan: TIVA Disposition: Standard PACU
[2023-04-19 08:41] VITALS: BP 119/70; PULSE 72; RESP 16; TEMP 36.2; O2SAT 98; BMI 28.8
--- NOTE | 2023-04-19 09:04 | MHC.SHP ---
Pre-Procedural Eval Section A - 24 Hr Update-Section A only Date of Service: 04/19/23 The patient is an INPATIENT: No Changes since office visit: Yes Patient answered all questions; No Cold of Flu in the past 2 weeks, No New Medical Problems and No Changes in Medication The patient has been examined within 24 hours of the surgical procedure. The History & Physical has been completed within 30 days and I have reviewed it.: Yes Section B - Complete if H&P > 30 days Chief Complaint: Encounter for screening for malignant neoplasm of Allergies: Allergies Allergy/AdvReac Type Severity Reaction Status Date / Time hydrochlorothiazide Allergy Unknown SWELLING, Verified 04/05/23 11:38 [HYDROCHLOROTHIAZIDE] rash sulfacetamide Allergy Unknown unknown Verified 04/05/23 11:38 bee sting Allergy Unknown anaphylaxis Uncoded 10/10/22 09:02 Review of Systems Sugical H&P ROS: Negative: Constitution, Cardiovascular, Respiratory and Gastrointestinal Exam Surgical H&P Exam: Normal: Heart, Normal: Lungs, Normal: Extremities and Normal: Abdomen Plan Diagnosis/Plan: Unchanged I have reviewed the history and physical and performed a pertinent physical examination on my patient. No changes have occurred unless specified. Time Spent With Patient Time: Total time managing care of this patient today ____ minutes.
[2023-04-19] MEDS: Lactated Ringers 1,000 ML 100 ML IVCONT (09:09)
--- NOTE | 2023-04-19 09:11 | W.PM.OPN ---
Operative Note Operative Note Date of Service: 04/19/23 Narrative: COLONOSCOPY TILL CECUM WITH BIOPSIES Pre-op diagnosis: Colon cancer screening Post-op diagnosis:? Colon polyp, diverticulosis Endoscopist:? Anna Jain MD Anesthesia:?MAC Consent: Indications for the procedure and potential complications of bleeding, perforation, reaction to medications and missed diagnosis were discussed with the patient and informed consent was obtained. Instrument: Olympus PCF H 190 L variable stiffness pediatric colonoscope Monitoring: Vital signs and clinical assessment, intermittent blood pressure monitoring, continuous EKG monitoring, Pulse oximetry and Carbon Dioxide monitoring were done throughout the procedure. Please see anesthesia flowsheet. Colon withdrawl time was 15 minutes. Procedure: The patient was placed in the left lateral decubitis position and pre-procedure medications were administered. After a digital rectal examination of the ano-rectum, the video colonoscope was inserted into the rectum and advanced through the colon to the cecum. The colonoscope was slowly withdrawn in a retrograde panoramic fashion and the colon mucosa was carefully examined including a retroflexed view of the rectum. Findings and interventions are described below. Procedure Difficulty: Colon was long and there was some loop formation. Patient was placed in the supine position and LLQ pressure was applied to intubate the cecum Findings: Terminal Ileum: Not evaluated Cecum: Normal Ascending Colon: Normal Transverse Colon: Normal Descending Colon: Moderate diverticulosis Sigmoid Colon: A 7-8 mm diminutive appearing polyp - removed with a cold biopsy. Severe diverticulosis with luminal narrowing Rectum: Normal Ano-rectum: Hypertrophied anal papillae Colon preparation: Good after some irrigation [place] Bowel Preparation Scale Right colon; 3 Transverse colon: 3 Left colon; 3 (0 = Unprepared colon segment with mucosa not seen due to solid stool that cannot be cleared. 1 = Portion of mucosa of the colon segment seen, but other areas of the colon segment not well seen due to staining, residual stool and/or opaque liquid. 2 = Minor amount of residual staining, small fragments of stool and/or opaque liquid, but mucosa of colon segment seen well. 3 = Entire mucosa of colon segment seen well with no residual staining, small fragments of stool or opaque liquid) Impression and Post Procedure Diagnosis: Colonoscopy Findings: One diminutive appearing polyp removed Moderate to severe diverticulosis seen in the left colon Plan: Await pathology results Patient has an appointment on 04/26/23 in the GI Clinic with Juani,Na D, DIRECTOR OF PLACEMENT-BC. Repeat Colonoscopy interval based on path results - in 5 years if polyps are adenomatous and 10 years if polyps are hyperplastic. Above findings were reviewed with the patient and colon polyps and diverticulosis handouts were given in the discharge area
[2023-04-19 09:50] VITALS: BP 126/55; PULSE 64; RESP 16; TEMP 37.2; O2SAT 99
[2023-04-19 10:05] VITALS: BP 110/59; PULSE 60; RESP 20; TEMP 36.4; O2SAT 98
== END 2023-04-19 10:30 | disposition home or self-care (01) ==
PROVIDERS: PCP Internal Medicine; Visit Provider Internal Medicine Gastroenterology
PROC: 0DJD8ZZ Inspection of Lower Intestinal Tract, Via Natural or Artificial Opening Endoscopic (ICD-10-PCS; CPT 45378; principal; 2023-04-19 10:00)
DX: Z12.11 Encounter for screening for malignant neoplasm of colon (principal); K63.5 Polyp of colon; K57.30 Diverticulosis of large intestine without perforation or abscess without bleeding; K62.89 Other specified diseases of anus and rectum; K59.01 Slow transit constipation; Z79.899 Other long term (current) drug therapy; Z88.2 Allergy status to sulfonamides; Z88.8 Allergy status to other drugs, medicaments and biological substances; Z86.16 Personal history of COVID-19; Z98.890 Other specified postprocedural states
CPT/HCPCS: 45380; 88305; J0330; J2704

== ENCOUNTER → 2023-04-19 08:18 | Outpatient (BNV) | payer MEDICARE, OTHER, SELFPAY | PROVIDERS: PCP Internal Medicine; Visit Provider Internal Medicine Gastroenterology | DX: Z12.11 Encounter for screening for malignant neoplasm of colon (principal); K63.5 Polyp of colon; K57.90 Diverticulosis of intestine, part unspecified, without perforation or abscess without bleeding | CPT/HCPCS: 45380 ==

== ENCOUNTER 2023-04-26 08:33 | Outpatient (AMB) | payer MEDICARE, OTHER, SELFPAY ==
--- NOTE | 2023-04-26 08:41 | A.OFFVIS_ITS ---
Intake Vital Signs 04/26/23 08:43 Height 5 ft 6 in Weight 180 lb BMI 29.0 BP 123/57 L Blood Pressure Location Lt brachial Position Sitting Pulse 68 Intake Visit Reasons: after procedure follow up Intake Note: Patient follow up for Colonoscopy results. Patient denies any GI issues for today. 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 Increase fluid intake and activity to promote better bowel motility. What to expect before during and after the procedure discussed with patient. Clear liquid diet and good bowel prep stressed with patient. Patient denies any cardiac or respiratory symptoms. I will see patient after the procedure, sooner on as needed basis. Patient is agreeable to current plan and verbalizes understanding of instructions. She was given the opportunity to ask questions and all questions answered. ? COLONOSCOPY Findings: Terminal Ileum: Not evaluated Cecum: Normal Ascending Colon: Normal Transverse Colon: Normal Descending Colon: Moderate diverticulosis Sigmoid Colon: A 7-8 mm diminutive appearing polyp - removed with a cold biopsy. Severe diverticulosis with luminal narrowing Rectum: Normal Ano-rectum: Hypertrophied anal papillae Colon preparation: Good after some irrigation [place] Bowel Preparation Scale Right colon; 3 Transverse colon: 3 Left colon; 3 (0 = Unprepared colon segment with mucos a not seen due to solid stool that cannot be cleared. 1 = Portion of mucosa of the colon segme nt seen, but other areas of the colon segment not well seen due to staining, residual stool and/or opaque liquid. 2 = Minor amount of residual staining, s mall fragments of stool and/or opaque liquid, but mucosa of colon segment seen well. 3 = Entire mucosa of colon segment seen well with no residual staining, small fragments of stool or opaque liquid) Impression and Post Procedure Diagnosis: Colonoscopy Findings: One diminutive appearing polyp removed Moderate to severe diverticulosis seen in the left colon Plan: Repeat Colonoscopy interval based on path results - in 5 years if polyps are adenomatous and 10 years if polyps are hyperplastic. PATHOLOGY RESULTS Diagnosis Colon, sigmoid, polyp: Hyperplastic polyp TODAY'S VISIT: Patient is here today for follow-up and to discuss colonoscopy results. Patient denies any ill effects from the prep, anesthesia or procedure itself. Hyperplastic polyp found and diverticulosis in left side of her colon. Patient denies any melena, hematochezia, unintentional weight loss or ribbon like stools. Patient denies any dyspepsia, dysphagia or odynophagia. Patient reports that she eats high-fiber diet. Patient reports that she is moving her bowels daily without any issues. Denies any GI concerning symptoms. [facility] Medical History (Updated 04/26/23 @ 09:00 by [facility] Diverticulosis COVID-19 virus infection Surgical History History of colonoscopy History of hysteroscopy History of arthroscopy of right knee H/O prior ablation treatment History of facial surgery Family History Father Heart disease Aneurysm ETOH abuse Mother Lung cancer Sister COPD (chronic obstructive pulmonary disease) Son Asthma Maternal Grandmother Cirrhosis Maternal Grandfather Heart disease Paternal Grandfather No problems noted. Paternal Grandmother No problems noted. Brother No problems noted. Brother No problems noted. Sister No problems noted. Sister No problems noted. Sister No problems noted. Son No problems noted. Daughter No problems noted. Social History Housing: House Patient Tobacco Use Status: Never used Tobacco e-Cigarette/Vaping Use: Never Used service: No Current occupational status: retired Cognitive needs: No Hearing needs: No Vision needs: Yes Review of Systems Const Denies weight gain and Denies weight loss ENT Reports no additional complaints, Denies dysphagia and Denies odynophagia Card Reports no additional complaints Resp Reports no additional complaints GI Denies abdominal pain, Denies belching, Denies melena, Denies bloating, Denies change in bowel habits, Denies dysphagia, Denies excessive flatus, Denies dyspepsia, Denies heartburn, Denies diarrhea, Denies loose stools, Denies nausea, Denies odynophagia and Denies vomiting Musc Reports no additional complaints Neuro Reports no additional complaints Psych Reports no additional complaints Endo Reports no additional complaints Physical Exam Vital Signs: Last Vital Signs Pulse 68 04/26/23 08:43 BP 123/57 L 04/26/23 08:43 BMI result Body Mass Index 29.0 Const General: healthy appearing, no acute distress and well developed Nutritional Appearance: obese Orientation/consciousness: patient oriented x3 Resp Effort & Inspection: normal respiratory effort, able to speak in complete sentences, no tracheal deviation and symmetric chest movement Auscultation: clear to auscultation bilaterally Cardio Rate: regular rate GI Inspection: Yes normal to inspection, No distended and Yes obesity Palpation (GI): Soft to palpation, not firm, nontender and No hepatosplenomegaly present Auscultation: normal bowel sounds General: Yes no CVA tenderness Back/Spine/Pelvis Back: no CVA tenderness Skin General skin exam: elasticity normal, turgor normal and dry skin Neuro General: patient oriented x3 Psych Appearance: grossly normal Mental Status: mental status grossly normal Assessment & Plan Assessment & Plan (1) Diverticulosis: Code(s): K57.90 - Diverticulosis of intestine, part unspecified, without perforation or abscess without bleeding (2) Status post colonoscopy: Code(s): Z98.890 - Other specified postprocedural states Plan Continue high-fiber diet. Patient can take [id number] probiotics. High- fiber diet discussed with patient list of food high to patient. Hyperplastic polyp found colonoscopy in 10 years sooner if clinically necessary. Patient will follow-up in the office on as needed basis. She is agreeable to this plan and verbalizes understanding of instructions. She was given the opportunity to ask questions and all questions answered. Thank you for allowing me to participate in her care Coding Level of Care Code Est Pt Level 3 (49076) Diagnoses Diverticulosis K57.90 Status post colonoscopy Z98.890 Time Spent (min) 30 Comment 20 minutes spent with patient and additional 10 minutes spent reviewing her records
[2023-04-26 08:43] VITALS: BP 123/57; PULSE 68; BMI 29.0
== END 2023-04-26 09:25 | disposition home or self-care (01) ==
PROVIDERS: PCP Internal Medicine; Visit Provider Nurse Practitioner Family
DX: K57.90 Diverticulosis of intestine, part unspecified, without perforation or abscess without bleeding (principal); Z98.890 Other specified postprocedural states
CPT/HCPCS: 99213

== ENCOUNTER → 2023-04-26 08:33 | Outpatient (BNVA) | payer MEDICARE, OTHER, SELFPAY | PROVIDERS: PCP Internal Medicine; Visit Provider Nurse Practitioner Family | DX: K57.90 Diverticulosis of intestine, part unspecified, without perforation or abscess without bleeding (principal); Z98.890 Other specified postprocedural states | CPT/HCPCS: 99212 ==

== ENCOUNTER 2023-10-08 10:33 | Outpatient (AMB) | payer MEDICARE, OTHER, SELFPAY ==
[2023-10-08 10:34] VITALS: BP 146/84; PULSE 68; O2SAT 98; BMI 28.8
--- NOTE | 2023-10-08 10:34 | A.OFFPC_ITS ---
Vital Signs 10/08/23 10:34 Height 5 ft 6 in Weight 178 lb 4 oz BMI 28.8 BP 146/84 H Blood Pressure Location Rt brachial Position Sitting Pulse 68 Pulse Source Pulse Oximeter Pulse Oximetry (%) 98 Oxygen Delivery Method Room Air Intake Visit Reasons: pe Allergies hydrochlorothiazide [HYDROCHLOROTHIAZIDE] Allergy (Unknown, Verified 10/08/23 10:35) SWELLING, rash sulfacetamide Allergy (Unknown, Verified 10/08/23 10:35) unknown bee sting Allergy (Unknown, Uncoded 10/10/22 09:02) anaphylaxis Medication List - Last Reconciled 10/08/23 by Rigoberto Agudelo MD acetaminophen ER 650 mg PO Q8H PRN cetirizine (Zyrtec) 10 mg PO DAILY epinephrine 0.3 mg (0.3 mL) IM Q10M PRN 30 days lisinopril 5 mg PO DAILY 90 days magnesium 400 mg PO BEDTIME PRN omeprazole 10 mg PO DAILY Tobacco use date assessed: 10/08/23 Fall risk assessment: No Falls in past year Last assessed Fall Risk: 10/08/23 Dental Screening Dental Screen Date: 10/08/23 Did you have a dental visit in the last 12 months?: Yes Did you have a dental problem in the last 6 months where you did not have access to dental care?: No Was dental information given to patient?: Patient has dentist HPI pe HPI Details Patient is 68-year-old female came in today for physical exam Only medication from this office is lisinopril 5 mg Patient is monitoring her blood pressure at home, which is running below 130 systolic Due for mammogram and bone density, order placed Colonoscopy was early this month at [facility] She has OBGYN at [facility] patient will call them and book appointment She is taking omeprazole [id number] for dyspepsia Lab order was placed in March to be done before this visit but patient forgot, patient was reminded Follow-up 1 year for physical exam [facility] Medical History Diverticulosis COVID-19 virus infection Surgical History History of colonoscopy History of hysteroscopy History of arthroscopy of right knee H/O prior ablation treatment History of facial surgery Family History Father Heart disease Aneurysm ETOH abuse Mother Lung cancer Sister COPD (chronic obstructive pulmonary disease) Son Asthma Maternal Grandmother Cirrhosis Maternal Grandfather Heart disease Paternal Grandfather No problems noted. Paternal Grandmother No problems noted. Brother No problems noted. Brother No problems noted. Sister No problems noted. Sister No problems noted. Sister No problems noted. Son No problems noted. Daughter No problems noted. Social History Housing: House Patient Tobacco Use Status: Never used Tobacco e-Cigarette/Vaping Use: Never Used service: No Current occupational status: retired Cognitive needs: No Hearing needs: No Vision needs: Yes Questionnaire PHQ-9 Over the last 2 weeks, how often have you been bothered by any of the following problems? 1. Little interest or pleasure in doing things: not at all 2. Feeling down, depressed, or hopeless: not at all 3. Trouble falling or staying asleep, or sleeping too much: not at all 4. Feeling tired or having little energy: not at all 5. Poor appetite or overeating: not at all 6. Feeling bad about yourself - or that you are a failure or have let yourself or your family down: not at all 7. Trouble concentrating on things, such as reading the newspaper or watching television: not at all 8. Moving or speaking so slowly that other people could have noticed. Or the opposite - being so fidgety or restless that you have been moving around a lot more than usual: not at all 9. Thoughts that you would be better off or of hurting yourself in some way: not at all Total score: 0 Depression Screening Interpretation: Negative Depression Screening Done: Yes 29205 - PHQ-9 Billing: Yes Source: Developed by Drs. Terrence Dickey, Natalie Mckee, Porfirio Marrufo and colleagues, with an educational lg from [employer]. Thrive Questionnaire Date Thrive assessed: 10/08/23 I am a: Patient What is your living situation today?: I have a steady place to live Within the past 12 months, did the food you bought not last and you didn't have the money to get more?: I choose not to answer this question Within the past 12 months, did you worry whether your food would run out before you got money to buy more?: Never true Do you have trouble paying for medicines?: No Do you have trouble getting transportation to medical appointments?: No Do you have trouble paying your heating and electricity bill?: I choose not to answer this question Do you have trouble taking care of your child, family member or friend?: No Do you have trouble with day-to-day activities such as bathing, preparing meals, shopping, managing finances, etc.?: No Are you currently unemployed and looking for a job?: No Are you interested in more education?: No Please select the resources that you would like help with: Paying for medicine Currently or been in a relationship where the following occur: I choose not to answer THRIVE Score: 0 AUDIT C Alcohol Use Questionnaire (AUDIT-C) 1. How often do you have a drink containing alcohol?: Monthly or less 2. How many drinks containing alcohol do you have on a typical day when you are drinking?: 1 or 2 3. How often do you have six or more drinks on one occasion?: Never Total Score: 1 Score Reviewed/Action Taken: Yes TROY-7 AMB Questionnaire TROY-7 Date TROY - 7 assessed: 10/08/23 Feeling nervous, anxious, or on edge: 0 = Not at all Not being able to stop or control worryin = Not at all Worrying too much about different things: 0 = Not at all Trouble relaxin = Not at all Being so restless that it is hard to sit still: 0 = Not at all Becoming easily annoyed or irritable: 0 = Not at all Feeling afraid as if something awful might happen: 0 = Not at all Total TROY-7 score (0-4 normal; 5-9 mild; 10-14 moderate; 15-21 severe): 0 Source: Developed by Drs. Terrence Dickey, Natalie Mckee, Porfirio Marrufo and colleagues, with an educational lg from [employer]. TROY-7 Assessment Billing TROY-7 Assessment Tool: TROY-7 Assessment 45935 Review of Systems Const Denies chills, Denies fever(s) and Denies headache(s) Eyes Denies blurry vision ENT Denies headache(s), Denies nasal discharge, Denies nasal obstruction, Denies od ynophagia and Denies sinus pain Card Denies chest pain at rest and Denies chest pain with activity Resp Denies cough and Denies hemoptysis GI Denies diarrhea, Denies odynophagia, Denies vomiting and Denies hematemesis Reports as per HPI Musc Denies abnormal gait Skin/Breast Reports as per HPI Neuro Denies Neuro-related abnormal movements, Denies Abnormal speech present, Denies abnormal gait, Denies headache(s) and Denies Sensory deficit (Neuro) Psych Denies mood swings and Denies paranoia Endo Reports as per HPI Jimmy/Lymph Reports as per HPI Aller/Immun Reports as per HPI Physical exam (Primary Care) Vital Signs: Last Vital Signs Pulse 68 10/08/23 10:34 BP 146/84 H 10/08/23 10:34 Pulse Ox 98 10/08/23 10:34 Oxygen Delivery Method Room Air 10/08/23 10:34 BMI result Body Mass Index 28.8 Tobacco/Smoking Status: Tobacco use Status Tobacco use date assessed 10/08/23 10/08/23 10:40 Patient Tobacco Use Status Never used Tobacco 10/08/23 10:40 e-Cigarette/Vaping Use Never Used 10/08/23 10:40 PHQ-9: PHQ-9 Score PHQ-9: Total score 0 10/08/23 10:58 Depression Screening Interpretation: Negative Thrive Assessment: Date of Thrive Assessment Date Thrive assessed 10/08/23 10/08/23 10:40 Currently or been in a relationship where the following occur: I choose not to answer Const General: cooperative, comfortable and no acute distress Orientation/consciousness: patient oriented x3 HENMT Head: Yes normocephalic and Yes atraumatic Eyes General: appearance normal, both eyes and all related structures Pupils: Equal, round and reactive pupils present EOM: EOMs intact bilaterally Neck Neck: Yes supple and No lymphadenopathy Thyroid: Thyroid normal Lymphatic: no lymphadenopathy noted Resp Effort & Inspection: normal respiratory effort and able to speak in complete sentences Auscultation: clear to auscultation bilaterally Cardio Heart sounds: S1 normal heart sound present and S2 normal heart sound present GI Palpation (GI): Soft to palpation and nontender Auscultation: normal bowel sounds General: Yes no CVA tenderness Back/Spine/Pelvis Back: no CVA tenderness Skin General skin exam: elasticity normal and turgor normal Neuro General: patient oriented x3 and gait normal Cranial nerves: Yes Equal, round and reactive pupils present Speech: No Abnormal speech present Sensory Exam: No Sensory deficit (Neuro) Coordination: tandem gait normal and Romberg test negative Extrem General: Yes normal exam except as noted and No edema Assessment and Plan Assessment & Plan (1) Encounter for general adult medical examination with abnormal findings: Code(s): Z00.01 - Encounter for general adult medical examination with abnormal findings (2) Menopause: Code(s): Z78.0 - Asymptomatic menopausal state (3) Hypertension, essential: Code(s): I10 - Essential (primary) hypertension (4) Impaired fasting blood sugar: Code(s): R73.01 - Impaired fasting glucose (5) Environmental allergies: Code(s): Z91.09 - Other allergy status, other than to drugs and biological substances (6) Overweight (BMI 25.0-29.9): Code(s): E66.3 - Overweight Plan Patient is 68-year-old female came in today for physical exam Only medication from this office is lisinopril 5 mg Patient is monitoring her blood pressure at home, which is running below 130 systolic Due for mammogram and bone density, order placed Colonoscopy was early this month at [facility] She has OBGYN at [facility] patient will call them and book appointment She is taking omeprazole [id number] for dyspepsia Lab order was placed in March to be done before this visit but patient forgot, patient was reminded Follow-up 1 year for physical exam Orders: Orders XR DEXA axial skeleton Today Z12.31 - Encounter for screening mammogram for malignant neoplasm of breast, Z78.0 - Asymptomatic menopausal state MM tomosynthesis screening BI Today Z12.31 - Encounter for screening mammogram for malignant neoplasm of breast, Z78.0 - Asymptomatic menopausal state Coding Level of Care Code Est Pt Level 3 (66295) Est Pt Prev Care >65y(32752) Diagnoses Encounter for general adult medical examination with abnormal findings Z00.01 Menopause Z78.0 Hypertension, essential I10 Impaired fasting blood sugar R73.01 Environmental allergies Z91.09 Overweight (BMI 25.0-29.9) E66.3 Additional Codes TROY-7 Assessment Billing - TROY-7 Assessment Tool: TROY-7 Assessment [id number] ([id number])
== END 2023-10-08 10:54 | disposition home or self-care (01) ==
PROVIDERS: PCP Internal Medicine; Visit Provider Internal Medicine
DX: Z00.00 Encounter for general adult medical examination without abnormal findings (principal); Z78.0 Asymptomatic menopausal state; I10 Essential (primary) hypertension; R73.01 Impaired fasting glucose; Z91.09 Other allergy status, other than to drugs and biological substances; E66.3 Overweight
CPT/HCPCS: 99397

== ENCOUNTER 2023-11-19 10:53 | Outpatient (AMB) | payer MEDICARE, OTHER, SELFPAY ==
[2023-11-19 11:20] VITALS: BMI 28.8
--- NOTE | 2023-11-19 11:20 | MHC.OFFVIS ---
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 Patient reports it is painful when she bends her knuckle. Patient states about 6 months ago it was sliced and drained at her PCP's office due to it growing in size. Patient would like to discuss removal today due to it filling up again . 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 She complains of mass on the dorsal aspect of her small finger PIP joint. She says this has been present for ~1 year, and she had this drained at his PCP's office in ~April this year. She says this began to fill back up in the last few months. She says this causes her pain when bending her finger, but denies any pain otherwise. She has a habit of picking at and playing with this mass at home, and is unsure if she has caused something to burst in this mass when at home. She would like to discuss surgery. [facility] Medical History Diverticulosis COVID-19 virus infection Surgical History History of colonoscopy History of hysteroscopy History of arthroscopy of right knee H/O prior ablation treatment History of facial surgery Family History Father Heart disease Aneurysm ETOH abuse Mother Lung cancer Sister COPD (chronic obstructive pulmonary disease) Son Asthma Maternal Grandmother Cirrhosis Maternal Grandfather Heart disease Paternal Grandfather No problems noted. Paternal Grandmother No problems noted. Brother No problems noted. Brother No problems noted. Sister No problems noted. Sister No problems noted. Sister No problems noted. Son No problems noted. Daughter No problems noted. Social History (Updated 11/19/23 @ 11:22 by MELISSA Clifford) Housing: House Patient Tobacco Use Status: Never used Tobacco e-Cigarette/Vaping Use: Never Used service: No Current occupational status: retired Current occupation: rt handed Cognitive needs: No Hearing needs: No Vision needs: Yes Review of Systems Const All systems reviewed & are unremarkable except as noted in HPI and below Physical Exam Vital Signs: BMI result Body Mass Index 28.8 Const General: cooperative, healthy appearing and no acute distress Orientation/consciousness: patient oriented x3 HEENT Head: Yes normocephalic and Yes atraumatic Eyes EOM: EOMs intact bilaterally Resp Effort & Inspection: normal respiratory effort and able to speak in complete sentences Cardio Jugular venous distension: no JVD Skin General skin exam: turgor normal Rashes: no rashes Neuro General: patient oriented x3 Extrem Other: Evaluation of Right Upper Extremity: The patient is alert, oriented, and in no acute distress Neuro: Median, Ulnar, Radial nerves motor and sensory intact and sensation is normal to the tips of all digits No intrinsic or thenar wasting Vascular: Cap refill brisk ROM: She can make a fist and extend all her digits No locking or catching No lacerations or abrasions. No Ecchymosis. No Erythema or evidence of infection. There is a mass on the dorsal aspect of her small finger PIP joint. She has an area of skin thickening that measures about a cm in diameter directly over the PIP joint. She said that there was a large fluid filled mass beneath it, but she picked at it and got some fluid to come out. She isn't sure, but she thinks that there was some whiteness and some clear numbness to the fluid. The mass 1st showed up about a year ago. Besides the area of skin thickening, she does feel like she has some fluid beneath it, particularly at the proximal end of the mass. So it is possible that she has a ganglion there are some other kind of fluid filled mass underneath this area of thickened skin. It is not tender There is no generalized erythema swelling or evidence of infection, though the area of thickened skin is slightly pink in color. Full range of motion of the digit without any discomfort. Psych Appearance: grossly normal Affect: normal affect Attitude: cooperative Assessment & Plan Assessment & Plan (1) Mass of finger of right hand: Comment: SF Code(s): R22.31 - Localized swelling, mass and lump, right upper limb Category: Medical Plan Assessment & Plan: 1. Right small finger mass, dorsal aspect of PIP joint With a 1 cm diameter area of skin thickening, and what feels like a slightly fluid filled mass beneath it Drain by PCP: ~04/2023 I educated her about this condition She does also report that she has trouble manipulating and picking at this area. I asked her to refrain from doing so. I discussed operative and non-operative treatment options The patient would like to proceed with surgery The risks and benefits of operative treatment were discussed with the patient and the patient wishes to proceed with surgery. These risks include, but are not limited to risk of damage to blood vessels, nerves, tendons, infection, recurrence, incomplete relief of preoperative symptoms, persistent pain, possible need for further surgery and the risks associated with regional blocks and anesthesia. The plan is to take the patient to the operating room sometime in the next few weeks for the following procedures: 1. Right small finger excision of mass, under local All of the preoperative paperwork including the consent was reviewed today. All the patient's questions were answered. The patient understands that they will be contacted by our magnet placer soon to schedule this procedure She denies Diabetes, blood thinners, asthma, heart, lung, kidney issues I am not sure if this is a ganglion or some other kind of mass. Again we do not know if it was clear fluid or white creamy fluid that came out of it because she is not really sure. For this reason I want to see her back about 2-3 weeks before her planned surgery to take another look at it. Scribed for Beth Carrington MD by Ephraim Brown, medical office supervisor, on 11/19/23 at 11:40 AM, EST. Coding Level of Care Code New Pt Level 4 (12200) Diagnoses Mass of finger of right hand R22.31
== END 2023-11-19 12:20 | disposition home or self-care (01) ==
PROVIDERS: PCP Internal Medicine; Visit Provider Orthopaedic Surgery
DX: R22.31 Localized swelling, mass and lump, right upper limb (principal)
CPT/HCPCS: 99204

== ENCOUNTER → 2023-11-19 10:53 | Outpatient (BNVA) | payer MEDICARE, OTHER, SELFPAY | PROVIDERS: PCP Internal Medicine; Visit Provider Orthopaedic Surgery | DX: R22.31 Localized swelling, mass and lump, right upper limb (principal) | CPT/HCPCS: 99202 ==

== ENCOUNTER 2023-12-06 09:41 | Outpatient (REF) | payer MEDICARE, OTHER, SELFPAY ==
--- NOTE | ~2023-12-06 | MM_ITS ---
EXAMINATION: BONE DENSITOMETRY CLINICAL INDICATION: Asymptomatic menopausal state. COMPARISON: Baseline BD dated 07/01/2008. TECHNIQUE: Using a [employer] DXA System (software version: 13.1) manufactured by [employer], dual-energy x-ray absorptiometry was performed of the lumbar spine and left hip. The images are of good technical quality. Summary results are attached. FINDINGS: LEFT FEMUR, NECK: Current: BMD 0.849 g/cm2, Z-score -0.1, T-score -1.4, osteopenia. Baseline: BMD 0.902 g/cm2. LEFT FEMUR, TOTAL: Current: BMD 0.938 g/cm2, Z-score 0.5, T-score -0.6, normal, 8.7% decrease from baseline (<5% change is not significant). Baseline: BMD 1.027 g/cm2. AP SPINE L1-L3 (excluding L4): The data of L1-L4 has been changed to exclude the L4 vertebral body, because at this level may cause overestimation of lumbar spine density. Current: BMD 0.990 g/cm2, Z-score -0.4, T-score -1.5, osteopenia, 14.8% decrease from baseline (<5% change is not significant). Baseline: BMD 1.162 g/cm2. IDENTIFIED RISK FACTORS: Menopause. HISTORY OF FRACTURE: None listed. MEDICATIONS: Calcium, vitamin D. MM/XR DEXA axial skeleton IMPRESSION: 1. DIAGNOSIS: Osteopenia based on the lowest T-score value of -1.5 in the lumbar spine applying World Health Organization criteria. 2. 10-YEAR FRACTURE RISK PREDICTION, FRAX: Major osteoporotic fracture (clinical spine, forearm, hip or shoulder) 9.2%. Hip fracture 1.1%. 3. Treatment Recommendations: NOF guidelines recommend consideration for treatment in postmenopausal women and men age 50 and older presenting with the following: -A hip or vertebral (clinical or morphometric) fracture. -T-score less than or equal to -2.5 at the femoral neck or spine after appropriate evaluation to exclude secondary causes. -Low bone mass at the hip or spine and a 10-year fracture probability by FRAX of greater than or equal to 3% for hip fracture or greater than or equal to 20% for major osteoporotic fracture based on the [place] adapted WHO algorithm. 4. Other Recommendations: All treatment decisions require clinical judgment and consideration of individual patient factors, including patient preferences, comorbidities, previous drug use, risk factors not captured in the FRAX model (e.g. frailty, falls, vitamin D deficiency, increased bone turnover, interval significant decline in bone density) and possible under or overestimation of fracture risk by FRAX. Additional medical evaluation for secondary cause of low bone mineral density may be appropriate. FUTURE SCAN RECOMMENDATION: People with diagnosed cases of osteoporosis or at high risk for fracture should have regular bone mineral density tests. For patients eligible for Medicare, routine testing is allowed once every 2 years. The testing frequency can be increased to one year for patients who have rapidly progressing disease, those who are receiving or discontinuing medical therapy to restore bone mass, or have additional risk factors. Electronically signed by: Gregg Barrera MD 12/12/2023 11:07 AM EDT [facility]
--- NOTE | ~2023-12-06 | MM_ITS ---
EXAMINATION: MM SCREENING DIGITAL BREAST TOMOSYNTHESIS, BILATERAL CLINICAL INFORMATION: Screening. Asymptomatic. COMPARISON: Mammography: Comparison is made with available priors TECHNIQUE: Digital breast mammography with tomosynthesis is performed in both the craniocaudal and mediolateral oblique views along with computer-aided detection (CAD). FINDINGS: There are scattered areas of fibroglandular density (ACR BI-RADS breast composition Category b). There are no significant masses, abnormal calcifications, or other abnormalities. MM/MM tomosynthesis screening BI IMPRESSION: No mammographic evidence of malignancy. ASSESSMENT: BI-RADS BI-RADS 1 - Negative RECOMMENDATION: Routine annual mammography screening. 1 year F/U This examination should not preclude the clinical evaluation of a suspicious palpable abnormality. This patient's information was entered into a reminder system with a target due date for their next mammogram. Electronically signed by: Agnieszka Alonso DO 12/18/2023 08:15 AM EDT
== END 2023-12-06 09:42 | disposition home or self-care (01) ==
LOC: HO.MAMMO 09:41
PROVIDERS: PCP Internal Medicine; Visit Provider Internal Medicine
DX: Z12.31 Encounter for screening mammogram for malignant neoplasm of breast (principal); Z13.820 Encounter for screening for osteoporosis; Z78.0 Asymptomatic menopausal state
CPT/HCPCS: 77063; 77067; 77080

== ENCOUNTER → 2023-12-06 10:15 | Outpatient (BNV) | payer MEDICARE, OTHER, SELFPAY | PROVIDERS: PCP Internal Medicine; Visit Provider Internal Medicine | DX: Z12.31 Encounter for screening mammogram for malignant neoplasm of breast (principal) | CPT/HCPCS: 77063; 77067 ==

== ENCOUNTER 2023-12-24 08:26 | Outpatient (AMB) | payer MEDICARE, OTHER, SELFPAY ==
--- NOTE | 2023-12-24 08:32 | MHC.OFFVIS ---
Intake Visit Reasons: Pre-Rt SF PIP Mass Exc Poss Ganglion DOS 01/09/24 Intake Note: Christine is a 68 yo right hand dominant female who presents today pre-operatively for a right small finger PIP mass excision scheduled for 01/09/[address] Carrington. Consent signed in office today. Allergies hydrochlorothiazide [HYDROCHLOROTHIAZIDE] Allergy (Unknown, Verified 12/24/23 08:40) SWELLING, rash sulfacetamide Allergy (Unknown, Verified 12/24/23 08:40) unknown bee sting Allergy (Unknown, Uncoded 12/24/23 08:40) anaphylaxis HPI HPI Pre-Rt SF PIP Mass Exc Poss Ganglion DOS 01/09/24: Details: Christine is a 68 year old right hand dominant woman who presents to discuss a right small finger mass. She complains of mass on the dorsal aspect of her small finger PIP joint. She says this has been present for ~1 year, and she had this drained at his PCP's office in ~April this year. She says this began to fill back up in the last few months. This has changed in size in the last few months, and tends to increase with use of her hands, such as gardening. She says this causes her pain when bending her finger, but denies any pain otherwise. She has a habit of picking at and playing with this mass at home, and is unsure if she has caused something to burst in this mass when at home. [facility] Medical History Diverticulosis COVID-19 virus infection Surgical History History of colonoscopy History of hysteroscopy History of arthroscopy of right knee H/O prior ablation treatment History of facial surgery Family History Father Heart disease Aneurysm ETOH abuse Mother Lung cancer Sister COPD (chronic obstructive pulmonary disease) Son Asthma Maternal Grandmother Cirrhosis Maternal Grandfather Heart disease Paternal Grandfather No problems noted. Paternal Grandmother No problems noted. Brother No problems noted. Brother No problems noted. Sister No problems noted. Sister No problems noted. Sister No problems noted. Son No problems noted. Daughter No problems noted. Social History (Updated 11/19/23 @ 11:22 by MEJIA Clifford Housing: House Patient Tobacco Use Status: Never used Tobacco e-Cigarette/Vaping Use: Never Used service: No Current occupational status: retired Current occupation: rt handed Cognitive needs: No Hearing needs: No Vision needs: Yes Review of Systems Const All systems reviewed & are unremarkable except as noted in HPI and below Physical Exam Const General: no acute distress and alert Orientation/consciousness: patient oriented x3 Neuro General: patient oriented x3 Extrem Other: Evaluation of Right Upper Extremity: The patient is alert, oriented, and in no acute distress Neuro: Median, Ulnar, Radial nerves motor and sensory intact and sensation is normal to the tips of all digits No intrinsic or thenar wasting Vascular: Cap refill brisk ROM: She can make a fist and extend all her digits Full ROM of the dismall finger without any discomfort. No locking or catching No lacerations or abrasions. No Ecchymosis. He does appear to have a fluid filled mass that is most consistent with a ganglion over the dorsal ulnar aspect of the PIP joint. It is smaller than it was per patient report, and now is really only visible when she fully flexes the digit. She has an area of skin thickening that measures ~1cm in diameter directly over the PIP joint. This area of skin thickening, which occurred because of her constant manipulation of the skin, has improved and is no longer discolored and is somewhat less thickened than it had been at her last visit. There is no generalized erythema swelling or evidence of infection. Psych Appearance: grossly normal Affect: normal affect Attitude: cooperative Assessment & Plan Assessment & Plan (1) Mass of finger of right hand: Comment: SF Code(s): R22.31 - Localized swelling, mass and lump, right upper limb Category: Medical Plan Assessment & Plan: 1. Right small finger mass, dorsal aspect of PIP joint With a 1 cm diameter area of skin thickening, and what feels like a slightly fluid filled mass beneath it Drain by PCP: ~04/2023 I educated her about this condition She does also report that she has trouble manipulating and picking at this area. I asked her to refrain from doing so. I discussed operative and non-operative treatment options The patient would like to proceed with surgery The risks and benefits of operative treatment were discussed with the patient and the patient wishes to proceed with surgery. These risks include, but are not limited to risk of damage to blood vessels, nerves, tendons, infection, recurrence, incomplete relief of preoperative symptoms, persistent pain, possible need for further surgery and the risks associated with regional blocks and anesthesia. The plan is to take the patient to the operating room sometime on 01/09/24 for the following procedures: 1. Right small finger excision of mass, under local All of the preoperative paperwork including the consent was reviewed today. All the patient's questions were answered. She denies Diabetes, blood thinners, asthma, heart, lung, kidney issues Scribed for Beth Carrington MD by Ephraim Brown, medical equipment repair technician, on 12/24/23 at 9:00 AM, EST. Coding Level of Care Code Est Pt Level 4 (04171) Diagnoses Mass of finger of right hand R22.31
== END 2023-12-24 09:13 | disposition home or self-care (01) ==
LOC: HO.HOS 08:27
PROVIDERS: PCP Internal Medicine; Visit Provider Orthopaedic Surgery
DX: R22.31 Localized swelling, mass and lump, right upper limb (principal)
CPT/HCPCS: 99214

== ENCOUNTER → 2023-12-24 08:26 | Outpatient (BNVA) | payer MEDICARE, OTHER, SELFPAY | PROVIDERS: PCP Internal Medicine; Visit Provider Orthopaedic Surgery | DX: Z01.818 Encounter for other preprocedural examination (principal); R22.31 Localized swelling, mass and lump, right upper limb | CPT/HCPCS: 99212 ==

== ENCOUNTER 2024-09-21 08:39 | Outpatient (AMB) | payer MEDICARE, OTHER, SELFPAY ==
[2024-09-21 08:52] VITALS: BP 134/62; PULSE 68; TEMP 37; O2SAT 98; BMI 27.6
--- NOTE | 2024-09-21 08:52 | MHC.OFFWIV ---
Intake Vital Signs 09/21/24 08:52 Height 5 ft 6 in Weight 171 lb 4 oz BMI 27.6 BP 134/62 Blood Pressure Location Lt brachial Position Sitting Pulse 68 Pulse Source Pulse Oximeter Temp 98.6 F Temp Source Oral Pulse Oximetry (%) 98 Oxygen Delivery Method Room Air Intake Visit Reasons: EP Swollen gland rt side, blood in ear Patient Tobacco Use Status: Never used Tobacco Is last menstrual period known: No Post menopausal: Yes Patient : No Allergies hydrochlorothiazide (HYDROCHLOROTHIAZIDE) Allergy (Unknown, Verified 09/21/24 08:58) SWELLING, rash sulfacetamide Allergy (Unknown, Verified 09/21/24 08:58) unknown bee sting Allergy (Unknown, Uncoded 12/24/23 08:40) anaphylaxis Do you need a note to return to daycare/school/sports/work: No HPI HPI Comments History of Present Illness Details 69 y/o Female patient who presents to the walk in clinic with c/o noticing small amount of Blood right Ear and Itching. Approximately a week ago, she was chased/attacked by Large Bees - since then she has been scratching both her ears, mostly right side. Pt worries might be a Bee inside right ear but denies ringing, Pain or hearing changes. [facility] Medical History (Updated 09/21/24 @ 09:45 by Alanis Nicole NP) Cut of skin of right ear Diverticulosis COVID-19 virus infection Surgical History History of colonoscopy History of hysteroscopy History of arthroscopy of right knee H/O prior ablation treatment History of facial surgery Family History Father Heart disease Aneurysm ETOH abuse Mother Lung cancer Sister COPD (chronic obstructive pulmonary disease) Son Asthma Maternal Grandmother Cirrhosis Maternal Grandfather Heart disease Paternal Grandfather No problems noted. Paternal Grandmother No problems noted. Brother No problems noted. Brother No problems noted. Sister No problems noted. Sister No problems noted. Sister No problems noted. Son No problems noted. Daughter No problems noted. Social History (Updated 11/19/23 @ 11:22 by MELISSA Clifford) Housing: House Patient Tobacco Use Status: Never used Tobacco e-Cigarette/Vaping Use: Never Used Patient : No service: No Current occupational status: retired Current occupation: rt handed Cognitive needs: No Hearing needs: No Vision needs: Yes Review of Systems Const All systems reviewed & are unremarkable except as noted in HPI and below Physical Exam Vital Signs: Last Vital Signs Temp 98.6 F 09/21/24 08:52 Pulse 68 09/21/24 08:52 BP 134/62 09/21/24 08:52 Pulse Ox 98 09/21/24 08:52 Oxygen Delivery Method Room Air 09/21/24 08:52 BMI result Body Mass Index 27.6 Const General: no acute distress Nutritional Appearance: obese Orientation/consciousness: patient oriented x3 HEENT Head: Yes normocephalic Ears: external ears normal, TM's normal bilaterally and Abnormal EAC present erythema on the right (Right Ear Canal opening with small Skin tear) Neck Neck: Yes full ROM, Yes no lymphadenopathy and Yes trachea midline Neuro General: patient oriented x3, gait normal and moves all extremities Psych Speech and movement: Normal speech and movement present Assessment & Plan Assessment & Plan (1) Cut of skin of right ear: Code(s): S01.311A - Laceration without foreign body of right ear, initial encounter Plan: B/L TM clear and intact. Small Skin Tear at the opening of right Ear Canal. No infection present. Coding Level of Care Code Est Pt Level 4 (67218) Diagnoses Cut of skin of right ear S01.311A Time Spent (min) 20
--- OUTSIDE RECORDS SUMMARY | 2024-09-21 09:00 | XMS_ITS | Clinical Summary ---
Author Organization [facility] Address [address] [place] [id number] Phone Care Team Providers Care Manager Application Name Role Phone Sole Segal MD Primary Care Provider Allergies Active Allergy Reactions Criticality Noted Date Comments Hydrochlorothiazide Anaphylaxis High 01/06/2019 Medications lisinopril (PRINIVIL,ZESTRI L) 5 MG tablet Take 5 mg by mouth daily. 05/19/2021 Active Active Problems Problem Noted Date Diagnosed Date HTN (hypertension) 01/06/2019 Immunizations Immunization Administration Dates Next Due Tdap 08/09/2021 Social History Tobacco Use Types Packs/Day Years Used Date Smoking Tobacco: Former Smokeless Tobacco: Never Alcohol Use Standard Drinks/Week Comments Yes 0 (1 standard drink = 0.6 oz pur e alcohol) Education Answer Date Recorded Are you interested in more education? Not on bruno e 06/22/2022 Are you concerned about learning? Not on file 06/22/2022 No 06/22/2022 No 06/22/2022 Digital Access Answer Date Recorded No 07/21/2022 No 07/21/2022 No 07/21/2022 Reliable internet access at home? Not on file 07/21/2022 Device with a working camera? Not on file Comments No Sex and Gender Information Value Date Recorded Sex Assigned at Female 01/06/2019 5:48 AM EST Legal Sex Female 5:16 AM EST Gender Identity Female 01/06/2019 5:48 AM EST Sexual Orientation Straight 01/06/2019 5: 48 AM EST Last Filed Vital Signs Vital Sign Reading Time Taken Comments Blood Pressure 134/88 08/24/2021 8:18 AM EDT Pulse 80 08/24/2021 8:18 AM EDT Temperature 36.4 C (97.6 F) 08/24/2021 8:18 AM EDT Respiratory Rate 18 08/24/2021 8:18 AM EDT Oxygen Saturation 97% 08/24/2021 8:18 AM EDT Inhaled Oxygen Concentration - - Weight 77.1 kg (170 lb) 08/24/2021 8:18 AM EDT Height 167.6 cm (5' 6 ) 08/24/2021 8:18 AM EDT Body Mass Index 27.44 08/24/2021 8:18 AM EDT Plan of Treatment Health Maintenance Due Date Last Done Comments BLOOD PRESSURE 1955 LIPID PANEL 1955 DEPRESSION SCREENING 1967 SMOKING Hx and SMOKELESS TOBACCO SCREENING 1968 HEPATITIS C SCREENING 1973 MAMMOGRAM 1995 COLOGUARD 2000 COLONOSCOPY 2000 COLORECTAL CANCER SCREENING 2000 FIT TEST 2000 FOBT 2000 SIGMOIDOSCOPY 2000 VIRTUAL COLONOSCOPY 2000 PNEUMOCOCCAL VACCINES (50+ years) (1 of 1 - PCV) 2005 ZOSTER VACCINES (1 of 2) 2005 CREATININE LEVEL 01/07/2020 01/06/2019 POTASSIUM LEVEL 01/07/2020 01/06/2019 OSTEOPOROSIS SCREENING INITI AL (ONE-TIME) 2020 COVID-19 VACCINE (4 - 2023-2 5 season) 2023 06/21/2021, 04/28/2020, 03/31/2020 RSV VACCINE (1 - 1-dose 75+ series) 2030 Adult Td,Tdap Booster 08/10/2031 08/09/2021 HEPATITIS A VACCINES Aged Out No long er eligible based on patient's age to complete this topic HIB VACCINES Aged Out No longer eligi ble based on patient's age to complete this topic MENINGOCOCCAL VACCINES (ACWY) Aged Out No longer eligible based on patient's age to complete this topic MENINGOCOCCAL VACCINES (B) Aged Out N o longer eligible based on patient's age to complete this topic Medical Devices Not on file Procedures Procedure Name Priority Date/Time Associated Diagnosis Comments BASIC METABOLIC PANEL STAT 01/06/2019 6:36 AM EST from Last 3 Months or Most Recently Relevant to Health Maintenance Results * (ABNORMAL) Basic metabolic panel (01/06/2019 6:36 AM EST) SODIUM 140 133 - 146 mmol/L [facility] CHLORIDE 103 96 - 108 mmol/L [facility] POTASSIUM 4.5 3.3 - 5.1 mmol/L [facility] CO2 26 21 - 35 mmol/L [facility] BUN 17 6 - 19 mg/dL [facility] CREATININE 0.60 0.5 - 1.5 mg/dL [facility] GLUCOSE 108(H) 70 - 99 mg/dL [facility] CALCIUM 9.3 8.4 - 10.3 mg/dL [facility] EGFR 97 >59 mL/min/1.7 3m2 [facility] Comment:If patient is black, multiply result by 1.159. Estimated glomerular filtration rate calculated using the CKD-EPI equation. ANION GAP 16 10 - 20 mmol/L [facility] Blood 01/06/2019 6:36 AM EST 01/06/2019 6:41 AM EST us Antony Tuttle DO LAB BLOOD ORDERABLES Final Re sult [address] [id number] from Last 3 Months or Most Recently Relevant to Health Maintenance Insurance [facility] [place] [address] [place] [address] [address] [place] [address] [address] [place] [address] [address] [place] [address] [address] [place] [address] [address] [place] [address] [place] [address] [place] [address] HMO [facility] H[facility] Care Teams Manager Application Relationship Specialty Start Date End Date Sole Segal MD [address] [address] PCP - General Internal Medicine 01/06/19 Additional Source Comments The information contained in this document represents components of the legal health record. It is not the complete legal health record.[facility]
== END 2024-09-21 09:30 | disposition home or self-care (01) ==
PROVIDERS: PCP Internal Medicine; Visit Provider Nurse Practitioner Family
DX: S01.311A Laceration without foreign body of right ear, initial encounter (principal)

== ENCOUNTER → 2024-09-21 08:39 | Outpatient (BNVA) | payer MEDICARE, OTHER, SELFPAY | PROVIDERS: PCP Internal Medicine; Visit Provider Nurse Practitioner Family | DX: S01.311A Laceration without foreign body of right ear, initial encounter (principal); X58.XXXA Exposure to other specified factors, initial encounter; Y93.9 Activity, unspecified; Y92.9 Unspecified place or not applicable; Y99.9 Unspecified external cause status | CPT/HCPCS: 99212 ==

== ENCOUNTER 2024-10-13 08:22 | Outpatient (AMB) | payer MEDICARE, OTHER, SELFPAY ==
[2024-10-13 08:24] VITALS: BP 142/80; PULSE 72; O2SAT 98; BMI 27.4
--- NOTE | 2024-10-13 08:24 | A.OFFPC_ITS ---
Vital Signs 10/13/24 08:24 Height 5 ft 6 in Weight 170 lb BMI 27.4 BP 142/80 H Blood Pressure Location Lt brachial Position Sitting Pulse 72 Pulse Source Pulse Oximeter Pulse Oximetry (%) 98 Oxygen Delivery Method Room Air Intake Visit Reasons: PE/secondary covers Application Packager Required: No Allergies hydrochlorothiazide (HYDROCHLOROTHIAZIDE) Allergy (Unknown, Verified 10/13/24 08:30) SWELLING, rash sulfacetamide Allergy (Unknown, Verified 10/13/24 08:30) unknown bee sting Allergy (Unknown, Uncoded 12/24/23 08:40) anaphylaxis Medication List - Last Reconciled 10/13/24 by Rigoberto Agudelo MD acetaminophen ER 650 mg PO Q8H PRN cetirizine (Zyrtec) 10 mg PO DAILY epinephrine 0.3 mg (0.3 mL) IM Q10M PRN 30 days lisinopril 5 mg PO DAILY 90 days magnesium 400 mg PO BEDTIME PRN omeprazole 10 mg PO DAILY Tobacco use date assessed: 10/13/24 Fall risk assessment: No Falls in past year Last assessed Fall Risk: 10/13/24 Dental Screening Dental Screen Date: 10/13/24 Did you have a dental visit in the last 12 months?: Yes Did you have a dental problem in the last 6 months where you did not have access to dental care?: No Was dental information given to patient?: Patient has dentist HPI PE/secondary covers HPI Details History of Present Illness Physical exam appointment Essential Hypertension: - Blood pressure recorded at clinic: 142 /80 mmHg, noted to be higher than home readings. - Home blood pressure averages: 127-130 mmHg. - Acknowledges dietary factors, such as salt intake, elevate blood pressure transiently. 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 - Exposure to yellow jackets during karthikeyan ening led to local swelling, prepared with Epipen but no systemic reaction noted. Osteopenia: - Recent bone density scan result shows osteopenia with a T-score of minus 1.5. - Current strategy involves dietary calc ium intake with an emphasis on calcium- rich foods rather than supplements. Hyperlipidemia: - Cholesterol levels recently found to b e slightly elevated with LDL at 145 mg/dL. - Weight management and dietary interven tions discussed as primary management strategies. Prediabetes: - Recognizes condition, focused on maint aining an optimal diet and weight to manage glucose levels. 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 - Mentioned a healthy lifestyle with exe rcise and a balanced diet focusing on calcium-rich foods. Health Maintenance - Mammogram performed in November; result s normal. - Bone density test in November showing o steopenia. - Blood work in February: CBC and metabol ic profile normal; cholesterol slightly elevated. - Vitamin D and B12 levels normal. - Colonoscopy in March last year show ing diverticulosis; hyperplastic polyp noted, planned repeat in 5 years. - Tetanus vaccine was received in 2021. - Neither pneumonia vaccination nor herrera gles vaccination has been administered yet; recommended due to age. Through pharmacy Medications - Lisinopril 5 mg, for hypertension. - Omeprazole 10 mg, ofen-ker-abcyhig for GERD. - Allergy medication and Epipen for inse ct sting allergy. - Magnesium at bedtime. Diagnostic results - Labs: CBC normal, metabolic profile no rmal with electrolytes, kidney, liver functioning. - Tests and Diagnostics: Bone density te st indicates osteopenia (T-score: -1.5), cholesterol LDL elevated at 145 mg/dL. - Colonoscopy: Moderate diverticulosis, hyperplastic polyp biopsy non-cancerous, repeat in 5 years. Patient Instructions - Monitor blood pressure and maintain a low-sodium diet. - Continue using local honey cautiously and have Epipen accessible. - Increase calcium intake through dietar y sources like yogurt and broccoli. - Monitor weight and maintain a balanced diet to manage cholesterol and prediabetes. - Schedule vaccinations for pneumonia an d shingles. Follow-up six-month for blood pressure monitoring Review of Systems - General: No fever no chills - Neurological: No headaches no dizzin ess - Ear nose throat: No sore throat no hearing difficulty no ear pain - Cardiovascular: No syncope, no chest pain, no palpitations - Gastrointestinal: No nausea vomiting or diarrhea - Endocrine: No polyuria polydipsia no heat intolerance - Genitourinary: No dysuria - Skin: No new complaints Physical Exam General: Cooperative, healthy appearing, comfortable, no acute distress Orientation: Patient oriented x3 Head: Normal to inspection Ears: Within normal limit visually Nose: Normal external nose present Face and sinus: Normal facial exam Eyes: Appearance normal, extraocular movement intact pupils reactive Neck: Normal visual inspection and supple Respiratory: Normal respiratory effort and able to speak in complete sentences. Clear to auscultation, no stridor Cardiovascular: S1 and S2 RRR Breast exam declined GI: Normal to inspection. Soft to palpation and nontender Skin: Turgor normal, no acute findings Neuro: Patient oriented x3, motor sensory intact, balance intact, tandem pass Extremities: Normal to inspection [facility] Medical History Cut of skin of right ear Diverticulosis COVID-19 virus infection Surgical History History of colonoscopy History of hysteroscopy History of arthroscopy of right knee H/O prior ablation treatment History of facial surgery Family History Father Heart disease Aneurysm ETOH abuse Mother Lung cancer Sister COPD (chronic obstructive pulmonary disease) Son Asthma Maternal Grandmother Cirrhosis Maternal Grandfather Heart disease Paternal Grandfather No problems noted. Paternal Grandmother No problems noted. Brother No problems noted. Brother No problems noted. Sister No problems noted. Sister No problems noted. Sister No problems noted. Son No problems noted. Daughter No problems noted. Social History Housing: House Patient Tobacco Use Status: Never used Tobacco e-Cigarette/Vaping Use: Never Used service: No Current occupational status: retired Current occupation: rt handed Cognitive needs: No Hearing needs: No Vision needs: Yes Questionnaire PHQ-9 Over the last 2 weeks, how often have you been bothered by any of the following problems? 1. Little interest or pleasure in doing things: not at all 2. Feeling down, depressed, or hopeless: not at all 3. Trouble falling or staying asleep, or sleeping too much: not at all 4. Feeling tired or having little energy: not at all 5. Poor appetite or overeating: not at all 6. Feeling bad about yourself - or that you are a failure or have let yourself or your family down: not at all 7. Trouble concentrating on things, such as reading the newspaper or watching television: not at all 8. Moving or speaking so slowly that other people could have noticed. Or the opposite - being so fidgety or restless that you have been moving around a lot more than usual: not at all 9. Thoughts that you would be better off or of hurting yourself in some way: not at all Total score: 0 Depression Screening Interpretation: Negative Depression Screening Done: Yes [id number] - PHQ-9 Billing: Yes Source: Developed by Drs. Terrence Dickey, Natalie Mckee, Porfirio Marrufo and colleagues, with an educational lg from [employer]. Thrive Questionnaire Date Thrive assessed: 10/13/24 I am a: Patient What is your living situation today?: I have a steady place to live Within the past 12 months, did the food you bought not last and you didn't have the money to get more?: Never true Within the past 12 months, did you worry whether your food would run out before you got money to buy more?: I choose not to answer this question Do you have trouble paying for medicines?: No Do you have trouble getting transportation to medical appointments?: No Do you have trouble paying your heating and electricity bill?: I choose not to answer this question Do you have trouble taking care of your child, family member or friend?: No Do you have trouble with day-to-day activities such as bathing, preparing meals, shopping, managing finances, etc.?: No Are you currently unemployed and looking for a job?: No Are you interested in more education?: No Please select the resources that you would like help with: Utilities and None Currently or been in a relationship where the following occur: I choose not to answer THRIVE Score: 0 AUDIT C Alcohol Use Questionnaire (AUDIT-C) 1. How often do you have a drink containing alcohol?: 2-4 times a month 2. How many drinks containing alcohol do you have on a typical day when you are drinking?: 1 or 2 3. How often do you have six or more drinks on one occasion?: Never Total Score: 2 Score Reviewed/Action Taken: Yes TROY-7 AMB Questionnaire TROY-7 Date TROY - 7 assessed: 10/13/24 Feeling nervous, anxious, or on edge: 0 = Not at all Not being able to stop or control worryin = Not at all Worrying too much about different things: 0 = Not at all Trouble relaxin = Not at all Being so restless that it is hard to sit still: 0 = Not at all Becoming easily annoyed or irritable: 0 = Not at all Feeling afraid as if something awful might happen: 0 = Not at all Total TROY-7 score (0-4 normal; 5-9 mild; 10-14 moderate; 15-21 severe): 0 Source: Developed by Drs. Terrence Dickey, Natalie Mckee, Porfirio Marruof and colleagues, with an educational lg from [employer]. TROY-7 Assessment Billing TROY-7 Assessment Tool: TROY-7 Assessment 36071 Physical exam (Primary Care) Vital Signs: Last Vital Signs Pulse 72 10/13/24 08:24 BP 142/80 H 10/13/24 08:24 Pulse Ox 98 10/13/24 08:24 Oxygen Delivery Method Room Air 10/13/24 08:24 BMI result Body Mass Index 27.4 Tobacco/Smoking Status: Tobacco use Status Tobacco use date assessed 10/13/24 10/13/24 08:29 Patient Tobacco Use Status Never used Tobacco 10/13/24 08:29 e-Cigarette/Vaping Use Never Used 10/13/24 08:29 PHQ-9: PHQ-9 Score PHQ-9: Total score 0 10/13/24 09:27 Depression Screening Interpretation: Negative Thrive Assessment: Date of Thrive Assessment Date Thrive assessed 10/13/24 10/13/24 08:29 Currently or been in a relationship where the following occur: I choose not to answer Coding Level of Care Code Est Pt Level 3 (80311) Est Pt Prev Care >65y(13888) Diagnoses Encounter for general adult medical examination with abnormal findings Z00.01 Hypertension, essential I10 Osteopenia, unspecified location M85.80 Osteopenia location: unspecified Impaired fasting blood sugar R73.01 Overweight (BMI 25.0-29.9) E66.3 Environmental allergies Z91.09 Allergy to insect stings Z91.038 Additional Codes TROY-7 Assessment Billing - TROY-7 Assessment Tool: TROY-7 Assessment 62696 ([id number]) PHQ-9 - 23581 - PHQ-9 Billing: Yes ([id number]) Assessment & Plan Assessment & Plan (1) Encounter for general adult medical examination with abnormal findings: Code(s): Z00.01 - Encounter for general adult medical examination with abnormal findings Category: Medical (2) Hypertension, essential: Code(s): I10 - Essential (primary) hypertension Category: Medical (3) Osteopenia: Code(s): M85.80 - Other specified disorders of bone density and structure, unspecified site Category: Medical Qualifiers: Osteopenia location: unspecified Qualified Code(s): M85.80 - Other specified disorders of bone density and structure, unspecified site (4) Impaired fasting blood sugar: Code(s): R73.01 - Impaired fasting glucose Category: Medical (5) Overweight (BMI 25.0-29.9): Code(s): E66.3 - Overweight Category: Medical (6) Environmental allergies: Code(s): Z91.09 - Other allergy status, other than to drugs and biological substances Category: Medical (7) Allergy to insect stings: Code(s): Z91.038 - Other insect allergy status Category: Medical Plan History of Present Illness Physical exam appointment Essential Hypertension: - Blood pressure recorded at clinic: 142/80 mmHg, noted to be higher than home readings. - Home blood pressure averages: 127-130 mmHg. - Acknowledges dietary factors, such as salt intake, elevate blood pressure transiently. 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 - Exposure to yellow jackets during gardening led to local swelling, prepared with Epipen but no systemic reaction noted. Osteopenia: - Recent bone density scan result shows osteopenia with a T-score of minus 1.5. - Current strategy involves dietary calcium intake with an emphasis on calcium- rich foods rather than supplements. Hyperlipidemia: - Cholesterol levels recently found to be slightly elevated with LDL at 145 mg/dL. - Weight management and dietary interventions discussed as primary management strategies. Prediabetes: - Recognizes condition, focused on maintaining an optimal diet and weight to manage glucose levels. 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 - Mentioned a healthy lifestyle with exercise and a balanced diet focusing on calcium-rich foods. Health Maintenance - Mammogram performed in November; results normal. - Bone density test in November showing osteopenia. - Blood work in February: CBC and metabolic profile normal; cholesterol slightly elevated. - Vitamin D and B12 levels normal. - Colonoscopy in March last year showing diverticulosis; hyperplastic polyp noted, planned repeat in 5 years. - Tetanus vaccine was received in 2021. - Neither pneumonia vaccination nor shingles vaccination has been administered yet; recommended due to age. Through pharmacy Medications - Lisinopril 5 mg, for hypertension. - Omeprazole 10 mg, pawj-elm-[id number] for GERD. - Allergy medication and Epipen for insect sting allergy. - Magnesium at bedtime. Diagnostic results - Labs: CBC normal, metabolic profile normal with electrolytes, kidney, liver functioning. - Tests and Diagnostics: Bone density test indicates osteopenia (T-score: -1.5), cholesterol LDL elevated at 145 mg/dL. - Colonoscopy: Moderate diverticulosis, hyperplastic polyp biopsy non-cancerous, repeat in 5 years. Patient Instructions - Monitor blood pressure and maintain a low-sodium diet. - Continue using local honey cautiously and have Epipen accessible. - Increase calcium intake through dietary sources like yogurt and broccoli. - Monitor weight and maintain a balanced diet to manage cholesterol and prediabetes. - Schedule vaccinations for pneumonia and shingles. Follow-up six-month for blood pressure monitoring Orders: Orders Complete Blood Count Auto Diff Today E66.3 - Overweight, I10 - Essential (primary) hypertension, R73.01 - Impaired fasting glucose, Z91.038 - Other insect allergy status, Z91.09 - Other allergy status, other than to drugs and biological substances Comprehensive [place]. Panel Fast Today E66.3 - Overweight, I10 - Essential (primary) hypertension, R73.01 - Impaired fasting glucose, Z91.038 - Other insect allergy status, Z91.09 - Other allergy status, other than to drugs and biological substances Lipid Panel Today E66.3 - Overweight, I10 - Essential (primary) hypertension, R73.01 - Impaired fasting glucose, Z91.038 - Other insect allergy status, Z91.09 - Other allergy status, other than to drugs and biological substances Medications: New epinephrine (EpiPen 2-Cliff) for 2 doses 0.3 mg (0.3 mL) IM Q10M PRN 2 ea 0RF anaphylaxis 30 days
--- OUTSIDE RECORDS SUMMARY | 2024-10-13 09:04 | XMS_ITS | Clinical Summary ---
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 Name Role Phone Sole Segal MD Primary [...] EST) SODIUM 140 133 - 146 mmol/L [facility] CHLORIDE 103 96 - 108 mmol/L [facility] POTASSIUM 4.5 3.3 - 5.1 mmol/L [facility] CO2 26 21 - 35 mmol/L [facility] BUN 17 6 - 19 mg/dL [facility] CREATININE 0.60 0.5 - 1.5 mg/dL [facility] GLUCOSE 108(H) 70 - 99 mg/dL [facility] CALCIUM 9.3 8.4 - 10.3 mg/dL [facility] EGFR 97 >59 mL/min/1.7 3m2 [facility] Comment:If patient is black, multiply result by 1.159. Estimated glomerular filtration rate calculated using the CKD-EPI equation. ANION GAP 16 10 - 20 mmol/L [facility] Blood 01/06/2019 6:36 AM EST 01/06/2019 6:41 AM EST us Antony Tuttle DO LAB BLOOD ORDERABLES Final Re sult [address] [id number] from Last 3 Months or Most Recently Relevant to Health Maintenance Insurance [facility] [place] [address] [place] [address] [place] [address] [place] [address] [place] [address] [place] [address] [place] [address] [place] [address] HMO [facility] HMO Care Teams Natural Gas Trader Relationship Specialty Start Date End Date Sole Segal MD [address] [place] [id number] PCP - General Internal Medicine 01/06/19 Additional Source Comments The information contained in this document represents components of the legal health record. It is not the complete legal health record.[facility]
== END 2024-10-13 09:07 | disposition home or self-care (01) ==
LOC: HO.HMCC 08:23
PROVIDERS: PCP Internal Medicine; Visit Provider Internal Medicine
DX: Z00.01 Encounter for general adult medical examination with abnormal findings (principal); I10 Essential (primary) hypertension; E66.3 Overweight; Z68.27 Body mass index [BMI] 27.0-27.9, adult; M85.80 Other specified disorders of bone density and structure, unspecified site; R73.01 Impaired fasting glucose; Z91.09 Other allergy status, other than to drugs and biological substances; Z91.038 Other insect allergy status

== ENCOUNTER → 2024-10-13 08:22 | Outpatient (BNVA) | payer MEDICARE, OTHER, SELFPAY | PROVIDERS: PCP Internal Medicine; Visit Provider Internal Medicine | DX: Z00.01 Encounter for general adult medical examination with abnormal findings (principal); E66.3 Overweight; Z68.27 Body mass index [BMI] 27.0-27.9, adult; I10 Essential (primary) hypertension; M85.80 Other specified disorders of bone density and structure, unspecified site; R73.01 Impaired fasting glucose; Z91.09 Other allergy status, other than to drugs and biological substances; Z91.038 Other insect allergy status; Z71.3 Dietary counseling and surveillance | CPT/HCPCS: 96127; 99212; 99397 ==